=== PATIENT | male | born 1960 | race Asian ===

== ENCOUNTER 2016-12-28 17:36 | Emergency (ER) | payer MEDICAID ==
[~2016-12-28] VITALS: Ht 167.6 cm; Wt 70.8 kg
[~2016-12-28 17:36] MED LIST: ACET650T10 GT; AMIO200T2 GT; CLON0.5T4 GT; DOCU-270 GT; FOLI0.8T23 GT; LEVE1000 GT; MIDO5TAB GT; NEPRO 1.8 GT; OMEP40CA37 PO; SEVE0.8P GT
--- NOTE | 2016-12-28 17:48 | NUR ---
DR JOHN AT BEDSIDE FOR EVAL.
--- NOTE | 2016-12-28 17:50 | NUR ---
PT FOX TO ER BED 10. CAME FROM [facility]. HERE FOR HYPOTENSION POST DIALYSIS. PT GOWNED AND PLACED ON MONITOR. VENT DEPENDENT W/ CURRENT SETTINGS AC 18 TV 500 FIO2 30% PEEP 5. AWAITING MD SWANSON.
--- NOTE | 2016-12-28 18:10 | NUR ---
IV LINE STARTED BLOOD DRAWN AND SENT TO LAB.
[2016-12-28 18:22] VITALS: BP 92/69
[2016-12-28 18:22] LABS: BASOPHILS % (AUTO) 0.7 % (0.0-2.0); EOSINOPHILS # (AUTO) 0.1 /CMM (0.0-0.7); HEMATOCRIT 36 % (39-51); HEMOGLOBIN 11.9 g/dL (13.5-17.5); LYMPHOCYTES # (AUTO) 0.8 /CMM (0.8-4.8); MEAN CORPUSCULAR HEMOGLOBIN 31 PG (26.0-33.0); MEAN CORPUSCULAR HGB CONC 33 g/dl (31.0-36.0); MEAN CORPUSCULAR VOLUME 95 fL (80-96); MONOCYTES # (AUTO) 0.4 /CMM (0.1-1.30); MONOCYTES % (AUTO) 6.4 % (2.0-12.0); NEUTROPHILS # (AUTO) 5.2 /CMM (1.8-8.9); NEUTROPHILS % (AUTO) 77.9 % (43.0-81.0); PLATELET COUNT (AUTO) 189 /CMM (150-450); RDW COEFFICIENT OF VARIATION 16.6 (11.5-15.0); RED BLOOD CELL COUNT(AUTO) 3.84 MIL/uL (4.5-6.0); WHITE BLOOD COUNT (AUTO) 6.5 K/uL (4.3-11.0)
--- NOTE | 2016-12-28 18:25 | NUR ---
RT NOTE PT RECEIVED MECHANICALLY VENTILATED VIA TRACH TUBE. PT PLACED ON VENT ON SETTINGS ENDORSED FROM TRANSPORT RT. ALARMS SET PER PROTOCOL AND AUDIBLE. VENT PLUGGED IN TO RED OUTLET. AMBU BAG AT BED SIDE. NO DISTRESS NOTED. WILL CONTINUE TO MONITOR. Addendum: 12/28/16 at 1827 by KYM RAMOS RT Amended: Links added.
[2016-12-28 18:33] LABS: CALCIUM, SERUM 9.2 mg/dL (8.5-10.1); CREATININE 3.4 mg/dL (0.6-1.3); POTASSIUM 4.3 mmol/L (3.5-5.1)
[2016-12-28] MEDS ORDERED: CALC667T2 GT (18:33)
[2016-12-28] MEDS ORDERED: IPRA3AMP IH ×2 (18:33)
[2016-12-28] MEDS ORDERED: LEVE100S GT (18:33)
[2016-12-28] MEDS ORDERED: MINE3.5O EACHEYE (18:33)
[2016-12-28] MEDS ORDERED: NUT.237L67 GT (18:33)
[2016-12-28] MEDS ORDERED: ACID1TAB12 GT (18:33)
[2016-12-28] MEDS ORDERED: CINA30TA PO (18:33)
[2016-12-28] MEDS ORDERED: SENN8.6T6 GT (18:33)
[2016-12-28] MEDS ORDERED: DOCU50LI GT (18:33)
[2016-12-28 18:39] LABS: BILIRUBIN,DIRECT 0.1 mg/dL (0.0-0.2); BILIRUBIN,TOTAL 0.5 mg/dL (0.2-1.0); TOTAL PROTEIN, SERUM 9.2 g/dL (6.4-8.2)
[2016-12-28 19:08] VITALS: BP 80/56
--- NOTE | 2016-12-28 19:09 | NUR ---
RT PT RECEIVED TRACHD ON [facility] VENT WITH NOTED SETTING. PT AWAKE BUT NOT ALERT. PT TOLERATING SETTING WELL. NO SOB OR DISTRESS NOTED. VENT CONNECTED TO RED OUTLET. AMBU BAG AT [facility]. WILL CONTINUE TO MONITOR. Addendum: 12/28/16 at 1911 by PEDRO NEAL RT Amended: Links added.
[2016-12-28 19:11] LABS: BAND % (MANUAL) 1 % (0.0-5.0); EOSINOPHILS % (MANUAL) 1 % (0-4); LYMPHOCYTES % (MANUAL) 13 % (16-48); MONOCYTES % (MANUAL) 4 % (0-11.0); NEUTROPHILS % (MANUAL) 81 (42-76)
--- NOTE | 2016-12-28 21:14 | NUR ---
CALLED TRANSPORT NEED RT THEY WILL CALL US BACK
--- NOTE | 2016-12-28 22:22 | NUR ---
GOT A CALL BACK FROM [place] [id number]
[2016-12-28 22:25] VITALS: BP 126/76
--- NOTE | 2016-12-28 22:50 | NUR ---
PT TRANSPORTED TO [facility].
[2016-12-28 22:57] VITALS: BP 103/71
== END 2016-12-28 22:58 | disposition home or self-care (01) ==
LOC: ER 17:38
DX: I95.9 Hypotension, unspecified (principal); I13.2 Hypertensive heart and chronic kidney disease with heart failure and with stage 5 chronic kidney disease, or end stage renal disease; I70.0 Atherosclerosis of aorta; E11.22 Type 2 diabetes mellitus with diabetic chronic kidney disease; E87.1 Hypo-osmolality and hyponatremia; I50.9 Heart failure, unspecified; N18.6 End stage renal disease; Z46.59 Encounter for fitting and adjustment of other gastrointestinal appliance and device; Z93.0 Tracheostomy status; Z99.11 Dependence on respirator [ventilator] status; Z99.2 Dependence on renal dialysis
CPT/HCPCS: 36415; 43760; 71010; 74000; 80048; 80076; 83605; 85025; 87040 ×2; 99285; A4606; J7030; J7040; Q9963; Z7610

== ENCOUNTER 2018-05-07 11:44 | Inpatient (IN) | payer MEDICAID ==
[2018-05-07] VITALS (49 sets, daily range): BP systolic 60–108; BP diastolic 34–75
[~2018-05-07] VITALS: Ht 167.6 cm; Wt 82.6 kg
[~2018-05-07 11:44] MED LIST changes: +ACID1TAB12 GT; -AMIO200T2 GT; +AMIO200T4 GT; +CALC667T2 GT; +CINA30TA2 PO; +CLON0.5T12 GT; -CLON0.5T4 GT; -DOCU-270 GT; +DOCU50LI GT; +IPRA3AMP23 IH; -LEVE1000 GT; +LEVE100S GT; +MINE3.5O EACHEYE; -NEPRO 1.8 GT; +NUT.237L67 GT; +SENN-168 GT
[2018-05-07] MEDS ORDERED: ONDANSETRON HCL/PF 4 MG/2 ML VIAL ONE (11:59)
[2018-05-07] MEDS ORDERED: VANCOMYCIN 1 GM in IV D5W 250 ML IV ONE (12:00)
[2018-05-07] MEDS ORDERED: PIPERACILLIN /TAZOBACTAM 3.375 G in IV D5W 50 ML IV ONE (12:00)
[2018-05-07] MEDS ORDERED: ONDANSETRON HCL/PF 4 MG/2 ML VIAL IVP ONE (12:00)
[2018-05-07 12:13] LABS: POTASSIUM 3.6 mmol/L (3.5-5.1)
[2018-05-07 12:14] LABS: CALCIUM, SERUM 9.9 mg/dL (8.5-10.1); CARBON DIOXIDE 21 mmol/L (21-32); CHLORIDE 93 mmol/L (98-107); GLUCOSE 199 mg/dL (74-106); SODIUM SERUM 133 mmol/L (136-145)
[2018-05-07 12:22] LABS: BILIRUBIN,DIRECT 0.2 mg/dL (0.0-0.2); BILIRUBIN,TOTAL 0.7 mg/dL (0.2-1.0)
[2018-05-07 12:23] LABS: ALBUMIN 3.5 g/dL (3.4-5.0); ALKALINE PHOSPHATASE 186 U/L (46-116); TOTAL PROTEIN, SERUM 8.8 g/dL (6.4-8.2)
[2018-05-07 12:24] LABS: CREATININE 9.5 mg/dL (0.6-1.3); UREA NITROGEN, BLOOD 107 mg/dL (7-18)
[2018-05-07] MEDS ORDERED: IV NS 0.9% 1,000 ML IV ONE (12:30)
[2018-05-07 12:38] LABS: BASOPHILS # (AUTO) 0.1 /CMM (0.0-0.2); BASOPHILS % (AUTO) 0.7 % (0.0-2.0); HEMATOCRIT 30 % (39-51); HEMOGLOBIN 10.3 g/dL (13.5-17.5); LYMPHOCYTES # (AUTO) 0.6 /CMM (0.8-4.8); LYMPHOCYTES % (AUTO) 7.3 % (20.0-44.0); MEAN CORPUSCULAR HGB CONC 34 g/dl (31.0-36.0); MEAN CORPUSCULAR VOLUME 100 fL (80-96); MONOCYTES # (AUTO) 0.3 /CMM (0.1-1.30); MONOCYTES % (AUTO) 3.5 % (2.0-12.0); NEUTROPHILS # (AUTO) 7.4 /CMM (1.8-8.9); NEUTROPHILS % (AUTO) 87.5 % (43.0-81.0); PLATELET COUNT (AUTO) 218 /CMM (150-450); RED BLOOD CELL COUNT(AUTO) 3.02 MIL/uL (4.5-6.0); WHITE BLOOD COUNT (AUTO) 8.5 K/uL (4.3-11.0)
[2018-05-07 13:16] LABS: ALANINE AMINOTRANSFERASE 75 U/L (12-78); ASPARTATE AMINOTRANSFERASE 38 U/L (15-37)
[2018-05-07] MEDS ORDERED: FAMO20TA41 GT (13:18)
[2018-05-07] MEDS ORDERED: FOLI1TAB16 GT (13:18)
[2018-05-07] MEDS ORDERED: LACT1TAB9 GT (13:18)
[2018-05-07] MEDS ORDERED: BLOO-668 IN (13:41)
[2018-05-07] MEDS ORDERED: INSU100V27 SQ (13:41)
[2018-05-07] MEDS ORDERED: ONDANSETRON HCL/PF 4 MG/2 ML VIAL IVP PRN (15:00)
[2018-05-07] MEDS ORDERED: MAGNESIUM HYDROXIDE 30 ML UDC PO PRN (15:00)
[2018-05-07] MEDS ORDERED: MAG HYDROX/AL HYDROX/SIMETH 30 ML UDC PO PRN (15:00)
[2018-05-07] MEDS ORDERED: ZOLPIDEM TARTRATE 5 MG TABLET PO PRN (15:00)
[2018-05-07] MEDS ORDERED: HYDROCODONE/APAP 5/325MG 1 EACH TABLET PO PRN (15:00)
[2018-05-07] MEDS ORDERED: FEE PK DOSING 1 MIN EA MC ONE (15:01)
[2018-05-07] MEDS: IV NS 0.9% 1,000 ML IV PRN (16:48)
[2018-05-07] MEDS: LEVOFLOXACIN 500 MG /D5W 100ML 500 MG in PREMIX 1 EA IV SCH (17:33)
[2018-05-07] MEDS: ACETAMINOPHEN 325 MG TABLET PO PRN (18:35)
[2018-05-07] MEDS ORDERED: NOREPINEPHRINE 8 MG in IV D5W 500 ML IV PRN (19:00)
[2018-05-07] MEDS: PIPERACILLIN /TAZOBACTAM 2.25 G in IV D5W 50 ML IV SCH (21:00)
[2018-05-08] VITALS (107 sets, daily range): BP systolic 74–136; BP diastolic 45–94
[2018-05-08] MEDS: ACETAMINOPHEN 325 MG TABLET PO PRN (01:58)
[2018-05-08 04:50] LABS: BASOPHILS % (AUTO) 0.2 % (0.0-2.0); HEMATOCRIT 27 % (39-51); HEMOGLOBIN 8.9 g/dL (13.5-17.5); LYMPHOCYTES # (AUTO) 0.7 /CMM (0.8-4.8); LYMPHOCYTES % (AUTO) 6.2 % (20.0-44.0); MEAN CORPUSCULAR HGB CONC 33 g/dl (31.0-36.0); MEAN CORPUSCULAR VOLUME 100 fL (80-96); MONOCYTES # (AUTO) 0.5 /CMM (0.1-1.30); MONOCYTES % (AUTO) 4.9 % (2.0-12.0); NEUTROPHILS # (AUTO) 9.3 /CMM (1.8-8.9); NEUTROPHILS % (AUTO) 87.7 % (43.0-81.0); PLATELET COUNT (AUTO) 229 /CMM (150-450); RED BLOOD CELL COUNT(AUTO) 2.67 MIL/uL (4.5-6.0); WHITE BLOOD COUNT (AUTO) 10.6 K/uL (4.3-11.0)
[2018-05-08 05:06] LABS: ALBUMIN 3.1 g/dL (3.4-5.0); BILIRUBIN,TOTAL 0.7 mg/dL (0.2-1.0); CALCIUM, SERUM 8.8 mg/dL (8.5-10.1); CREATININE 6.5 mg/dL (0.6-1.3); MAGNESIUM 2.3 mg/dL (1.8-2.4); PHOSPHORUS 2.8 mg/dL (2.5-4.9); POTASSIUM 3.6 mmol/L (3.5-5.1); TOTAL PROTEIN, SERUM 7.7 g/dL (6.4-8.2)
[2018-05-08] MEDS: PIPERACILLIN /TAZOBACTAM 2.25 G in IV D5W 50 ML IV SCH ×3 (05:30→21:00)
[2018-05-08] MEDS: IV NS 0.9% 1,000 ML IV PRN ×2 (05:30→18:07)
[2018-05-08 08:42] LABS: ABG BASE EXCESS -2.8 mmol/L; ABG OXYGEN SATURATION 97.9 % (92.0-98.5); ABG PCO2 35.3 mmHg (35.0-45.0); ABG PH 7.403 (7.350-7.450); ABG PO2 121.1 mmHg (75.0-100.0); AaDO2 123.5 mmHg; COHb 1.3 % (0.5-1.5); MetHb 0.1 % (0.0-1.5); O2Hb 96.5 % (94.0-97.0); SITE, ABG Right Radial
[2018-05-08] MEDS: NOREPINEPHRINE 16 MG in IV D5W 500 ML IV PRN (09:28)
[2018-05-08] MEDS: Z GUARD REMEDY 2 OZ OINT TP PRN (09:28)
[2018-05-08] MEDS ORDERED: DEXTROSE 50%-WATER 50 ML DISP.SYRIN IV PRN (10:00)
[2018-05-08] MEDS: BLOOD SUGAR DIAGNOSTIC 1 EACH STRIP IN SCH ×3 (11:58→23:48)
[2018-05-08] MEDS ORDERED: VANCOMYCIN 1 GM in IV D5W 250 ML IV ONE (13:00)
[2018-05-08] MEDS ORDERED: VANCOMYCIN 500 MG in IV D5W 100 ML IV PRN (16:00)
[2018-05-08] MEDS: NEPRO 1,000 ML BOTTLE GT PRN (19:57)
[2018-05-08 23:06] LABS: OCCULT BLOOD STOOL NEGATIVE (NEGATIVE)
[2018-05-08] MEDS: INSULIN REGULAR, HUMAN 100 UNIT/ML 3 ML VIAL SQ PRN (23:52)
[2018-05-09] VITALS (105 sets, daily range): BP systolic 74–148; BP diastolic 51–84
[2018-05-09 04:34] LABS: BASOPHILS % (AUTO) 0.4 % (0.0-2.0); HEMATOCRIT 24 % (39-51); HEMOGLOBIN 8.1 g/dL (13.5-17.5); LYMPHOCYTES # (AUTO) 0.7 /CMM (0.8-4.8); LYMPHOCYTES % (AUTO) 9.5 % (20.0-44.0); MEAN CORPUSCULAR HGB CONC 33 g/dl (31.0-36.0); MEAN CORPUSCULAR VOLUME 100 fL (80-96); MONOCYTES # (AUTO) 0.5 /CMM (0.1-1.30); MONOCYTES % (AUTO) 6.7 % (2.0-12.0); NEUTROPHILS # (AUTO) 5.9 /CMM (1.8-8.9); NEUTROPHILS % (AUTO) 81.4 % (43.0-81.0); PLATELET COUNT (AUTO) 176 /CMM (150-450); RED BLOOD CELL COUNT(AUTO) 2.43 MIL/uL (4.5-6.0); WHITE BLOOD COUNT (AUTO) 7.2 K/uL (4.3-11.0)
[2018-05-09 04:48] LABS: CALCIUM, SERUM 8.5 mg/dL (8.5-10.1); MAGNESIUM 2.3 mg/dL (1.8-2.4); PHOSPHORUS 3.3 mg/dL (2.5-4.9); POTASSIUM 3.5 mmol/L (3.5-5.1)
[2018-05-09] MEDS: PIPERACILLIN /TAZOBACTAM 2.25 G in IV D5W 50 ML IV SCH ×3 (05:05→20:37)
[2018-05-09] MEDS: BLOOD SUGAR DIAGNOSTIC 1 EACH STRIP IN SCH ×4 (05:05→23:33)
[2018-05-09] MEDS: INSULIN REGULAR, HUMAN 100 UNIT/ML 3 ML VIAL SQ PRN ×3 (06:01→17:16)
[2018-05-09] MEDS: IV NS 0.9% 1,000 ML IV PRN ×2 (07:37→12:33)
[2018-05-09] MEDS: NOREPINEPHRINE 16 MG in IV D5W 500 ML IV PRN ×2 (07:42→18:38)
[2018-05-09] MEDS: LACTOBACILLUS RHAMNOSUS GG 1 EACH CAP.SPRINK GT SCH (17:02)
[2018-05-09] MEDS: LEVOFLOXACIN 500 MG /D5W 100ML 500 MG in PREMIX 1 EA IV SCH (17:03)
[2018-05-09] MEDS: Z GUARD REMEDY 2 OZ OINT TP PRN (17:16)
[2018-05-10] VITALS (91 sets, daily range): BP systolic 88–139; BP diastolic 57–94
[2018-05-10] MEDS: NEPRO 1,000 ML BOTTLE GT PRN (01:23)
[2018-05-10 04:31] LABS: BASOPHILS % (AUTO) 0.3 % (0.0-2.0); EOSINOPHILS % (AUTO) 2.1 % (0.0-6.0); HEMATOCRIT 24 % (39-51); LYMPHOCYTES # (AUTO) 0.6 /CMM (0.8-4.8); LYMPHOCYTES % (AUTO) 8.7 % (20.0-44.0); MEAN CORPUSCULAR HGB CONC 34 g/dl (31.0-36.0); MEAN CORPUSCULAR VOLUME 99 fL (80-96); MONOCYTES # (AUTO) 0.4 /CMM (0.1-1.30); MONOCYTES % (AUTO) 5.9 % (2.0-12.0); NEUTROPHILS # (AUTO) 5.5 /CMM (1.8-8.9); PLATELET COUNT (AUTO) 181 /CMM (150-450); RED BLOOD CELL COUNT(AUTO) 2.42 MIL/uL (4.5-6.0); WHITE BLOOD COUNT (AUTO) 6.7 K/uL (4.3-11.0)
[2018-05-10 04:43] LABS: CALCIUM, SERUM 8.7 mg/dL (8.5-10.1); CREATININE 6.3 mg/dL (0.6-1.3); MAGNESIUM 2.1 mg/dL (1.8-2.4); PHOSPHORUS 3.5 mg/dL (2.5-4.9); POTASSIUM 3.2 mmol/L (3.5-5.1)
[2018-05-10] MEDS: PIPERACILLIN /TAZOBACTAM 2.25 G in IV D5W 50 ML IV SCH ×3 (05:14→21:47)
[2018-05-10] MEDS: BLOOD SUGAR DIAGNOSTIC 1 EACH STRIP IN SCH ×3 (05:14→17:21)
[2018-05-10] MEDS: INSULIN REGULAR, HUMAN 100 UNIT/ML 3 ML VIAL SQ PRN ×2 (05:40→12:15)
[2018-05-10] MEDS: LACTOBACILLUS RHAMNOSUS GG 1 EACH CAP.SPRINK GT SCH ×2 (08:41→17:21)
[2018-05-10] MEDS: IV NS 0.9% 1,000 ML IV PRN (08:41)
[2018-05-10] MEDS ORDERED: POTASSIUM CHLORIDE 20 MEQ POWDER PACKET GT ONE (09:30)
[2018-05-10] MEDS: ACETAMINOPHEN 325 MG TABLET PO PRN (17:21)
[2018-05-11] VITALS (93 sets, daily range): BP systolic 75–140; BP diastolic 28–86
[2018-05-11] MEDS: BLOOD SUGAR DIAGNOSTIC 1 EACH STRIP IN SCH ×5 (00:02→23:45)
[2018-05-11] MEDS: INSULIN REGULAR, HUMAN 100 UNIT/ML 3 ML VIAL SQ PRN ×4 (00:08→23:46)
[2018-05-11] MEDS: NEPRO 1,000 ML BOTTLE GT PRN ×2 (03:00→23:05)
[2018-05-11 05:08] LABS: CALCIUM, SERUM 9.2 mg/dL (8.5-10.1); POTASSIUM 3.6 mmol/L (3.5-5.1)
[2018-05-11] MEDS: PIPERACILLIN /TAZOBACTAM 2.25 G in IV D5W 50 ML IV SCH ×3 (05:33→21:01)
[2018-05-11 05:34] LABS: CREATININE 7.6 mg/dL (0.6-1.3)
[2018-05-11] MEDS: LACTOBACILLUS RHAMNOSUS GG 1 EACH CAP.SPRINK GT SCH ×2 (08:23→17:23)
[2018-05-11] MEDS: NOREPINEPHRINE 16 MG in IV D5W 500 ML IV PRN (09:39)
[2018-05-11] MEDS: IV NS 0.9% 1,000 ML IV PRN (09:48)
[2018-05-11] MEDS: Z GUARD REMEDY 2 OZ OINT TP PRN (11:51)
[2018-05-11] MEDS: LEVOFLOXACIN 500 MG /D5W 100ML 500 MG in PREMIX 1 EA IV SCH (17:23)
[2018-05-11] MEDS ORDERED: NOREPINEPHRINE 16 MG in IV D5W 500 ML IV PRN (18:00)
[2018-05-12] VITALS (87 sets, daily range): BP systolic 36–139; BP diastolic 36–96
[2018-05-12 04:49] LABS: BASOPHILS % (AUTO) 0.5 % (0.0-2.0); EOSINOPHILS % (AUTO) 2.4 % (0.0-6.0); HEMATOCRIT 23 % (39-51); HEMOGLOBIN 7.6 g/dL (13.5-17.5); LYMPHOCYTES % (AUTO) 12.8 % (20.0-44.0); MEAN CORPUSCULAR HGB CONC 34 g/dl (31.0-36.0); MEAN CORPUSCULAR VOLUME 98 fL (80-96); MONOCYTES # (AUTO) 0.4 /CMM (0.1-1.30); MONOCYTES % (AUTO) 5.8 % (2.0-12.0); NEUTROPHILS # (AUTO) 5.9 /CMM (1.8-8.9); NEUTROPHILS % (AUTO) 78.5 % (43.0-81.0); PLATELET COUNT (AUTO) 210 /CMM (150-450); RED BLOOD CELL COUNT(AUTO) 2.31 MIL/uL (4.5-6.0); WHITE BLOOD COUNT (AUTO) 7.4 K/uL (4.3-11.0)
[2018-05-12 05:05] LABS: CALCIUM, SERUM 9.3 mg/dL (8.5-10.1); CREATININE 7.2 mg/dL (0.6-1.3); MAGNESIUM 2.1 mg/dL (1.8-2.4); PHOSPHORUS 5.1 mg/dL (2.5-4.9); POTASSIUM 3.8 mmol/L (3.5-5.1)
[2018-05-12] MEDS: PIPERACILLIN /TAZOBACTAM 2.25 G in IV D5W 50 ML IV SCH ×3 (05:15→21:04)
[2018-05-12] MEDS: BLOOD SUGAR DIAGNOSTIC 1 EACH STRIP IN SCH ×4 (05:32→23:50)
[2018-05-12 08:08] LABS: BAND % (MANUAL) 8 % (0.0-5.0); EOSINOPHILS % (MANUAL) 3 % (0-4); LYMPHOCYTES % (MANUAL) 7 % (16-48); MONOCYTES % (MANUAL) 4 % (0-11.0); MYELOCYTES % 1 % (0-0); NEUTROPHILS % (MANUAL) 77 (42-76)
[2018-05-12] MEDS: LACTOBACILLUS RHAMNOSUS GG 1 EACH CAP.SPRINK GT SCH ×2 (08:21→16:55)
[2018-05-12] MEDS: MIDODRINE HCL (5MG) 5 MG TABLET GT SCH ×3 (11:19→16:55)
[2018-05-12] MEDS: SEVELAMER CARBONATE 0.8 GM POWD.PACK GT SCH ×3 (11:19→16:55)
[2018-05-12] MEDS: LEVETIRACETAM SOL (5 ML) 100 MG/ML UDC GT SCH ×2 (11:19→21:04)
[2018-05-12] MEDS: IV NS 0.9% 1,000 ML IV PRN (12:28)
[2018-05-12] MEDS: clonazePAM 0.5 MG TABLET GT SCH (21:04)
[2018-05-13] VITALS (41 sets, daily range): BP systolic 90–123; BP diastolic 63–82
[2018-05-13 05:09] LABS: CALCIUM, SERUM 9.3 mg/dL (8.5-10.1); POTASSIUM 4.1 mmol/L (3.5-5.1)
[2018-05-13] MEDS: PIPERACILLIN /TAZOBACTAM 2.25 G in IV D5W 50 ML IV SCH ×2 (05:10→12:01)
[2018-05-13] MEDS: NEPRO 1,000 ML BOTTLE GT PRN (05:10)
[2018-05-13 05:11] LABS: CREATININE 8.8 mg/dL (0.6-1.3)
[2018-05-13] MEDS: BLOOD SUGAR DIAGNOSTIC 1 EACH STRIP IN SCH ×4 (06:15→23:04)
[2018-05-13] MEDS: INSULIN REGULAR, HUMAN 100 UNIT/ML 3 ML VIAL SQ PRN (06:18)
[2018-05-13] MEDS: LEVETIRACETAM SOL (5 ML) 100 MG/ML UDC GT SCH ×2 (08:19→20:02)
[2018-05-13] MEDS: clonazePAM 0.5 MG TABLET GT SCH ×2 (08:20→20:02)
[2018-05-13] MEDS: FOLIC ACID 1 MG TABLET GT SCH (08:20)
[2018-05-13] MEDS: MIDODRINE HCL (5MG) 5 MG TABLET GT SCH ×3 (08:20→16:32)
[2018-05-13] MEDS: SEVELAMER CARBONATE 0.8 GM POWD.PACK GT SCH ×3 (08:20→16:32)
[2018-05-13] MEDS: LACTOBACILLUS RHAMNOSUS GG 1 EACH CAP.SPRINK GT SCH ×2 (08:20→16:32)
[2018-05-13] MEDS: IV NS 0.9% 1,000 ML IV PRN (13:35)
[2018-05-13] MEDS ORDERED: CEFEPIME 1 GM in IV D5W 50 ML IV SCH (16:00)
[2018-05-13] MEDS: LEVOFLOXACIN 500 MG /D5W 100ML 500 MG in PREMIX 1 EA IV SCH (16:32)
[2018-05-13] MEDS: CEFEPIME 1 GM in IV D5W 50 ML IV SCH (18:08)
[2018-05-13] MEDS ORDERED: IV D5/ 0.9% NACL 1,000 ML IV PRN (18:30)
[2018-05-14] VITALS (17 sets, daily range): BP systolic 97–118; BP diastolic 66–89
[2018-05-14 04:54] LABS: BASOPHILS % (AUTO) 0.6 % (0.0-2.0); EOSINOPHILS % (AUTO) 2.6 % (0.0-6.0); LYMPHOCYTES # (AUTO) 0.9 /CMM (0.8-4.8); MEAN CORPUSCULAR HGB CONC 34 g/dl (31.0-36.0); MEAN CORPUSCULAR VOLUME 97 fL (80-96); MONOCYTES # (AUTO) 0.4 /CMM (0.1-1.30); MONOCYTES % (AUTO) 6.2 % (2.0-12.0); NEUTROPHILS # (AUTO) 4.6 /CMM (1.8-8.9); NEUTROPHILS % (AUTO) 75.6 % (43.0-81.0); PLATELET COUNT (AUTO) 181 /CMM (150-450); RED BLOOD CELL COUNT(AUTO) 2.03 MIL/uL (4.5-6.0); WHITE BLOOD COUNT (AUTO) 6.1 K/uL (4.3-11.0)
[2018-05-14 05:01] LABS: CALCIUM, SERUM 8.8 mg/dL (8.5-10.1); PHOSPHORUS 6.7 mg/dL (2.5-4.9)
[2018-05-14 05:04] LABS: CREATININE 10.1 mg/dL (0.6-1.3)
[2018-05-14] MEDS: BLOOD SUGAR DIAGNOSTIC 1 EACH STRIP IN SCH ×4 (05:09→23:30)
[2018-05-14 05:13] LABS: HEMATOCRIT 20 % (39-51); HEMOGLOBIN 6.7 g/dL (13.5-17.5)
[2018-05-14 05:20] LABS: LYMPHOCYTES % (MANUAL) 20 % (16-48)
[2018-05-14 05:22] LABS: EOSINOPHILS % (MANUAL) 2 % (0-4); MONOCYTES % (MANUAL) 4 % (0-11.0); NEUTROPHILS % (MANUAL) 72 (42-76)
[2018-05-14] MEDS: SEVELAMER CARBONATE 0.8 GM POWD.PACK GT SCH ×3 (08:49→17:22)
[2018-05-14] MEDS: LACTOBACILLUS RHAMNOSUS GG 1 EACH CAP.SPRINK GT SCH ×2 (08:50→17:22)
[2018-05-14] MEDS: clonazePAM 0.5 MG TABLET GT SCH ×2 (08:50→21:12)
[2018-05-14] MEDS: LEVETIRACETAM SOL (5 ML) 100 MG/ML UDC GT SCH ×2 (08:50→21:01)
[2018-05-14] MEDS: MIDODRINE HCL (5MG) 5 MG TABLET GT SCH ×3 (08:50→17:22)
[2018-05-14] MEDS: FOLIC ACID 1 MG TABLET GT SCH (08:50)
[2018-05-14 18:28] LABS: OCCULT BLOOD STOOL POSITIVE (NEGATIVE)
[2018-05-14] MEDS: CEFEPIME 1 GM in IV D5W 50 ML IV SCH (19:12)
[2018-05-14] MEDS: IV D5/ 0.9% NACL 1,000 ML IV PRN (20:57)
[2018-05-14] MEDS: PANTOPRAZOLE 40 MG VIAL IV SCH (21:01)
[2018-05-15] VITALS: BP 107/81
[2018-05-15 04:00] VITALS: BP 104/77
[2018-05-15 06:31] LABS: BASOPHILS % (AUTO) 0.5 % (0.0-2.0); EOSINOPHILS % (AUTO) 2.3 % (0.0-6.0); HEMATOCRIT 24 % (39-51); HEMOGLOBIN 8.1 g/dL (13.5-17.5); LYMPHOCYTES # (AUTO) 0.8 /CMM (0.8-4.8); LYMPHOCYTES % (AUTO) 12.5 % (20.0-44.0); MEAN CORPUSCULAR HGB CONC 34 g/dl (31.0-36.0); MEAN CORPUSCULAR VOLUME 95 fL (80-96); MONOCYTES # (AUTO) 0.3 /CMM (0.1-1.30); MONOCYTES % (AUTO) 5.5 % (2.0-12.0); NEUTROPHILS # (AUTO) 4.8 /CMM (1.8-8.9); NEUTROPHILS % (AUTO) 79.2 % (43.0-81.0); PLATELET COUNT (AUTO) 194 /CMM (150-450); RED BLOOD CELL COUNT(AUTO) 2.46 MIL/uL (4.5-6.0); WHITE BLOOD COUNT (AUTO) 6.1 K/uL (4.3-11.0)
[2018-05-15] MEDS: BLOOD SUGAR DIAGNOSTIC 1 EACH STRIP IN SCH ×3 (06:46→18:09)
[2018-05-15 06:48] LABS: ALBUMIN 2.6 g/dL (3.4-5.0); BILIRUBIN,TOTAL 0.6 mg/dL (0.2-1.0); CALCIUM, SERUM 8.6 mg/dL (8.5-10.1); MAGNESIUM 1.9 mg/dL (1.8-2.4); PHOSPHORUS 5.1 mg/dL (2.5-4.9); POTASSIUM 3.8 mmol/L (3.5-5.1)
[2018-05-15 06:54] LABS: CREATININE 7.7 mg/dL (0.6-1.3)
[2018-05-15 08:00] VITALS: BP 103/74
[2018-05-15] MEDS: FOLIC ACID 1 MG TABLET GT SCH (08:50)
[2018-05-15] MEDS: PANTOPRAZOLE 40 MG VIAL IV SCH ×2 (08:50→20:45)
[2018-05-15] MEDS: clonazePAM 0.5 MG TABLET GT SCH ×2 (08:50→20:45)
[2018-05-15] MEDS: MIDODRINE HCL (5MG) 5 MG TABLET GT SCH ×3 (08:50→18:08)
[2018-05-15] MEDS: LEVETIRACETAM SOL (5 ML) 100 MG/ML UDC GT SCH ×2 (08:50→20:45)
[2018-05-15] MEDS: LACTOBACILLUS RHAMNOSUS GG 1 EACH CAP.SPRINK GT SCH ×2 (08:51→18:09)
[2018-05-15] MEDS: SEVELAMER CARBONATE 0.8 GM POWD.PACK GT SCH ×3 (08:51→18:07)
[2018-05-15 12:00] VITALS: BP 113/78
[2018-05-15 16:00] VITALS: BP 119/80
[2018-05-15] MEDS: CEFEPIME 1 GM in IV D5W 50 ML IV SCH (18:10)
[2018-05-15 20:00] VITALS: BP 125/80
[2018-05-16] VITALS (7 sets, daily range): BP systolic 94–117; BP diastolic 52–90
[2018-05-16] MEDS: BLOOD SUGAR DIAGNOSTIC 1 EACH STRIP IN SCH ×4 (00:32→17:00)
[2018-05-16] MEDS: IV D5/ 0.9% NACL 1,000 ML IV PRN (00:58)
[2018-05-16 05:46] LABS: BASOPHILS % (AUTO) 0.3 % (0.0-2.0); EOSINOPHILS % (AUTO) 2.4 % (0.0-6.0); HEMATOCRIT 24 % (39-51); LYMPHOCYTES # (AUTO) 0.8 /CMM (0.8-4.8); LYMPHOCYTES % (AUTO) 13.8 % (20.0-44.0); MEAN CORPUSCULAR HGB CONC 34 g/dl (31.0-36.0); MEAN CORPUSCULAR VOLUME 96 fL (80-96); MONOCYTES # (AUTO) 0.4 /CMM (0.1-1.30); MONOCYTES % (AUTO) 6.2 % (2.0-12.0); NEUTROPHILS # (AUTO) 4.6 /CMM (1.8-8.9); NEUTROPHILS % (AUTO) 77.3 % (43.0-81.0); PLATELET COUNT (AUTO) 179 /CMM (150-450); RED BLOOD CELL COUNT(AUTO) 2.45 MIL/uL (4.5-6.0); WHITE BLOOD COUNT (AUTO) 5.9 K/uL (4.3-11.0)
[2018-05-16 06:05] LABS: CALCIUM, SERUM 8.8 mg/dL (8.5-10.1); MAGNESIUM 1.9 mg/dL (1.8-2.4); PHOSPHORUS 6.8 mg/dL (2.5-4.9); POTASSIUM 3.9 mmol/L (3.5-5.1)
[2018-05-16 06:08] LABS: CREATININE 9.2 mg/dL (0.6-1.3)
[2018-05-16] MEDS: SEVELAMER CARBONATE 0.8 GM POWD.PACK GT SCH ×3 (08:42→16:55)
[2018-05-16] MEDS: LACTOBACILLUS RHAMNOSUS GG 1 EACH CAP.SPRINK GT SCH ×2 (08:43→16:54)
[2018-05-16] MEDS: FOLIC ACID 1 MG TABLET GT SCH (08:43)
[2018-05-16] MEDS: MIDODRINE HCL (5MG) 5 MG TABLET GT SCH ×3 (08:43→16:54)
[2018-05-16] MEDS: LEVETIRACETAM SOL (5 ML) 100 MG/ML UDC GT SCH ×2 (08:43→21:32)
[2018-05-16] MEDS: PANTOPRAZOLE 40 MG VIAL IV SCH ×2 (08:43→21:32)
[2018-05-16] MEDS: clonazePAM 0.5 MG TABLET GT SCH ×2 (08:43→21:32)
[2018-05-16] MEDS: CEFEPIME 1 GM in IV D5W 50 ML IV SCH (17:00)
[2018-05-17] VITALS: BP 121/77
[2018-05-17] MEDS: INSULIN REGULAR, HUMAN 100 UNIT/ML 3 ML VIAL SQ PRN ×2 (01:11→06:02)
[2018-05-17 04:00] VITALS: BP 113/72
[2018-05-17] MEDS: BLOOD SUGAR DIAGNOSTIC 1 EACH STRIP IN SCH ×5 (06:01→23:52)
[2018-05-17] MEDS: IV D5/ 0.9% NACL 1,000 ML IV PRN (06:03)
[2018-05-17 08:00] VITALS: BP 119/80
[2018-05-17 08:04] LABS: BASOPHILS % (AUTO) 0.6 % (0.0-2.0); EOSINOPHILS % (AUTO) 2.2 % (0.0-6.0); HEMATOCRIT 24 % (39-51); LYMPHOCYTES # (AUTO) 0.7 /CMM (0.8-4.8); LYMPHOCYTES % (AUTO) 13.6 % (20.0-44.0); MEAN CORPUSCULAR HGB CONC 34 g/dl (31.0-36.0); MEAN CORPUSCULAR VOLUME 96 fL (80-96); MONOCYTES # (AUTO) 0.3 /CMM (0.1-1.30); MONOCYTES % (AUTO) 5.4 % (2.0-12.0); NEUTROPHILS # (AUTO) 3.9 /CMM (1.8-8.9); NEUTROPHILS % (AUTO) 78.2 % (43.0-81.0); PLATELET COUNT (AUTO) 173 /CMM (150-450); RED BLOOD CELL COUNT(AUTO) 2.46 MIL/uL (4.5-6.0)
[2018-05-17 08:09] LABS: CALCIUM, SERUM 8.8 mg/dL (8.5-10.1); CREATININE 6.6 mg/dL (0.6-1.3); MAGNESIUM 1.9 mg/dL (1.8-2.4); PHOSPHORUS 5.5 mg/dL (2.5-4.9); POTASSIUM 3.7 mmol/L (3.5-5.1)
[2018-05-17] MEDS: LACTOBACILLUS RHAMNOSUS GG 1 EACH CAP.SPRINK GT SCH ×2 (09:13→17:18)
[2018-05-17] MEDS: LEVETIRACETAM SOL (5 ML) 100 MG/ML UDC GT SCH ×2 (09:13→20:03)
[2018-05-17] MEDS: clonazePAM 0.5 MG TABLET GT SCH ×2 (09:13→20:03)
[2018-05-17] MEDS: FOLIC ACID 1 MG TABLET GT SCH (09:14)
[2018-05-17] MEDS: SEVELAMER CARBONATE 0.8 GM POWD.PACK GT SCH ×3 (09:14→17:18)
[2018-05-17] MEDS: MIDODRINE HCL (5MG) 5 MG TABLET GT SCH ×3 (09:14→17:17)
[2018-05-17] MEDS: PANTOPRAZOLE 40 MG VIAL IV SCH ×2 (09:15→20:03)
[2018-05-17 12:00] VITALS: BP 123/82
[2018-05-17 16:19] VITALS: BP 98/68
[2018-05-17] MEDS: CEFEPIME 1 GM in IV D5W 50 ML IV SCH (17:53)
[2018-05-17 20:00] VITALS: BP 96/63
[2018-05-18] VITALS: BP 112/73
[2018-05-18 04:00] VITALS: BP 117/81
[2018-05-18] MEDS: BLOOD SUGAR DIAGNOSTIC 1 EACH STRIP IN SCH ×3 (06:01→18:06)
[2018-05-18] MEDS: IV D5/ 0.9% NACL 1,000 ML IV PRN (06:22)
[2018-05-18 07:24] LABS: BASOPHILS % (AUTO) 0.6 % (0.0-2.0); EOSINOPHILS % (AUTO) 2.6 % (0.0-6.0); HEMATOCRIT 25 % (39-51); HEMOGLOBIN 8.4 g/dL (13.5-17.5); LYMPHOCYTES # (AUTO) 0.9 /CMM (0.8-4.8); LYMPHOCYTES % (AUTO) 16.2 % (20.0-44.0); MEAN CORPUSCULAR HGB CONC 34 g/dl (31.0-36.0); MEAN CORPUSCULAR VOLUME 96 fL (80-96); MONOCYTES # (AUTO) 0.4 /CMM (0.1-1.30); NEUTROPHILS % (AUTO) 73.6 % (43.0-81.0); PLATELET COUNT (AUTO) 170 /CMM (150-450); RED BLOOD CELL COUNT(AUTO) 2.58 MIL/uL (4.5-6.0); WHITE BLOOD COUNT (AUTO) 5.4 K/uL (4.3-11.0)
[2018-05-18 07:41] LABS: CALCIUM, SERUM 9.3 mg/dL (8.5-10.1); MAGNESIUM 1.9 mg/dL (1.8-2.4); PHOSPHORUS 6.6 mg/dL (2.5-4.9); POTASSIUM 3.9 mmol/L (3.5-5.1)
[2018-05-18 07:46] LABS: CREATININE 8.2 mg/dL (0.6-1.3)
[2018-05-18 08:00] VITALS: BP 107/71
[2018-05-18] MEDS: LEVETIRACETAM SOL (5 ML) 100 MG/ML UDC GT SCH ×2 (08:54→20:38)
[2018-05-18] MEDS: clonazePAM 0.5 MG TABLET GT SCH ×2 (08:54→20:38)
[2018-05-18] MEDS: LACTOBACILLUS RHAMNOSUS GG 1 EACH CAP.SPRINK GT SCH ×2 (08:54→16:42)
[2018-05-18] MEDS: SEVELAMER CARBONATE 0.8 GM POWD.PACK GT SCH ×3 (08:54→16:42)
[2018-05-18] MEDS: PANTOPRAZOLE 40 MG VIAL IV SCH ×2 (08:54→20:38)
[2018-05-18] MEDS: FOLIC ACID 1 MG TABLET GT SCH (08:54)
[2018-05-18] MEDS: MIDODRINE HCL (5MG) 5 MG TABLET GT SCH ×3 (10:00→16:57)
[2018-05-18 12:00] VITALS: BP 112/76
[2018-05-18] MEDS: NEPRO 1,000 ML BOTTLE GT PRN (12:27)
[2018-05-18] MEDS ORDERED: NEPRO 1,000 ML BOTTLE GT PRN (12:30)
[2018-05-18 16:00] VITALS: BP 113/74
[2018-05-18] MEDS: CEFEPIME 1 GM in IV D5W 50 ML IV SCH (18:22)
[2018-05-18 20:00] VITALS: BP 113/83
[2018-05-19] VITALS: BP 113/86
[2018-05-19] MEDS: BLOOD SUGAR DIAGNOSTIC 1 EACH STRIP IN SCH ×3 (00:43→12:31)
[2018-05-19] MEDS: INSULIN REGULAR, HUMAN 100 UNIT/ML 3 ML VIAL SQ PRN ×2 (00:43→05:57)
[2018-05-19 04:00] VITALS: BP 132/80
[2018-05-19 07:39] LABS: BASOPHILS % (AUTO) 0.7 % (0.0-2.0); EOSINOPHILS % (AUTO) 2.5 % (0.0-6.0); HEMATOCRIT 24 % (39-51); LYMPHOCYTES # (AUTO) 0.8 /CMM (0.8-4.8); LYMPHOCYTES % (AUTO) 16.2 % (20.0-44.0); MEAN CORPUSCULAR HGB CONC 34 g/dl (31.0-36.0); MEAN CORPUSCULAR VOLUME 96 fL (80-96); MONOCYTES # (AUTO) 0.3 /CMM (0.1-1.30); MONOCYTES % (AUTO) 6.1 % (2.0-12.0); NEUTROPHILS # (AUTO) 3.8 /CMM (1.8-8.9); NEUTROPHILS % (AUTO) 74.5 % (43.0-81.0); PLATELET COUNT (AUTO) 169 /CMM (150-450); RED BLOOD CELL COUNT(AUTO) 2.45 MIL/uL (4.5-6.0); WHITE BLOOD COUNT (AUTO) 5.1 K/uL (4.3-11.0)
[2018-05-19 08:00] VITALS: BP_SYST 112; BP_SYST 122; BP_DIAS 77
[2018-05-19 08:11] LABS: CALCIUM, SERUM 8.9 mg/dL (8.5-10.1)
[2018-05-19 08:12] LABS: CREATININE 7.9 mg/dL (0.6-1.3)
[2018-05-19] MEDS: clonazePAM 0.5 MG TABLET GT SCH (09:50)
[2018-05-19] MEDS: SEVELAMER CARBONATE 0.8 GM POWD.PACK GT SCH ×2 (09:50→12:19)
[2018-05-19] MEDS: MIDODRINE HCL (5MG) 5 MG TABLET GT SCH ×2 (09:50→12:18)
[2018-05-19] MEDS: LEVETIRACETAM SOL (5 ML) 100 MG/ML UDC GT SCH (09:51)
[2018-05-19] MEDS: LACTOBACILLUS RHAMNOSUS GG 1 EACH CAP.SPRINK GT SCH (09:51)
[2018-05-19] MEDS: FOLIC ACID 1 MG TABLET GT SCH (09:51)
[2018-05-19] MEDS: PANTOPRAZOLE 40 MG VIAL IV SCH (09:54)
[2018-05-19] MEDS: IV D5/ 0.9% NACL 1,000 ML IV PRN (10:20)
[2018-05-19] MEDS ORDERED: LACT1CAP72 GT (11:56)
[2018-05-19] MEDS ORDERED: Nepro GT (11:56)
[2018-05-19] MEDS ORDERED: CEFE1FRO IV (11:56)
[2018-05-19 12:00] VITALS: BP 115/73
[2018-05-19 16:00] VITALS: BP 156/91
== END 2018-05-19 17:30 | DRG 720 ==
LOC: ER 11:48 → ICU 13:29 → TELE-TD 05-14 06:02 → TELE1 05-17 16:34
PROVIDERS: ADMIT Internal Medicine; ATTEND Student in an Organized Health Care Education/Training Program
PROC: 02HV33Z Insertion of Infusion Device into Superior Vena Cava, Percutaneous Approach (ICD-10-PCS; principal; 2018-05-07)
PROC: B548ZZA Ultrasonography of Superior Vena Cava, Guidance (ICD-10-PCS; principal; 2018-05-07)
PROC: 5A1955Z Respiratory Ventilation, Greater than 96 Consecutive Hours (ICD-10-PCS; principal; 2018-05-07)
PROC: 30233N1 Transfusion of Nonautologous Red Blood Cells into Peripheral Vein, Percutaneous Approach (ICD-10-PCS; 2018-05-14)
PROC: 0D20XUZ Change Feeding Device in Upper Intestinal Tract, External Approach (ICD-10-PCS; 2018-05-15)
DX: A41.9 Sepsis, unspecified organism (principal); R65.21 Severe sepsis with septic shock; G93.1 Anoxic brain damage, not elsewhere classified; Z99.11 Dependence on respirator [ventilator] status; I13.2 Hypertensive heart and chronic kidney disease with heart failure and with stage 5 chronic kidney disease, or end stage renal disease; J18.9 Pneumonia, unspecified organism; J96.11 Chronic respiratory failure with hypoxia; R40.3 Persistent vegetative state; G40.909 Epilepsy, unspecified, not intractable, without status epilepticus; I48.0 Paroxysmal atrial fibrillation; N18.6 End stage renal disease; Z99.2 Dependence on renal dialysis; Z93.0 Tracheostomy status; E87.1 Hypo-osmolality and hyponatremia; Z87.820 Personal history of traumatic brain injury; E87.6 Hypokalemia; D63.8 Anemia in other chronic diseases classified elsewhere; Z93.1 Gastrostomy status; L30.4 Erythema intertrigo; L98.9 Disorder of the skin and subcutaneous tissue, unspecified; B96.89 Other specified bacterial agents as the cause of diseases classified elsewhere; L03.311 Cellulitis of abdominal wall; B96.5 Pseudomonas (aeruginosa) (mallei) (pseudomallei) as the cause of diseases classified elsewhere; I50.9 Heart failure, unspecified; I25.10 Atherosclerotic heart disease of native coronary artery without angina pectoris; I25.2 Old myocardial infarction; K21.9 Gastro-esophageal reflux disease without esophagitis; R13.10 Dysphagia, unspecified; Y95 Nosocomial condition; Z16.23 Resistance to quinolones and fluoroquinolones; Z86.14 Personal history of Methicillin resistant Staphylococcus aureus infection; Z86.718 Personal history of other venous thrombosis and embolism; Z86.74 Personal history of sudden cardiac arrest; K94.22 Gastrostomy infection; Y83.9 Surgical procedure, unspecified as the cause of abnormal reaction of the patient, or of later complication, without mention of misadventure at the time of the procedure
CPT/HCPCS: 31720; 36415; 36569; 36600; 71045-TC; 80048-TC; 80053-TC; 80061-TC; 80076-TC; 80202-TC; 82272-TC; 82728-TC; 82803-TC; 82962-TC; 83540-TC; 83605-TC; 83735-TC; 84100-TC; 84484-TC; 85025-TC; 85730-TC; 86850-TC; 86921-TC; 87040-TC; 87070-TC; 87081-TC; 87186-TC; 90935-TC; 94002-TC; 94003-TC; 94760-TC; 94762-TC; 99082-TC; A4216; A4623; A6402; C1751; C9113; G0378; J0692; J1815; J1953; J1956; J2405; J2543; J3370; J7030; J7042; J7050; J7060; J7070; P9016-BL

== ENCOUNTER 2019-01-08 09:50 | Inpatient (IN) | payer MEDICAID ==
[~2019-01-08] VITALS: Ht 177.8 cm; Wt 74.4 kg
[~2019-01-08 09:50] MED LIST changes: +BLOO-668 IN; -CALC667T2 GT; +CEFE1FRO IV; -CINA30TA2 PO; -CLON0.5T12 GT; +CLON0.5T4 GT; +FOLI1TAB16 GT; +INSU100V27 SQ; +LACT1CAP72 GT; -MIDO5TAB GT; +MIDO5TAB4 GT; +Nepro GT; -OMEP40CA37 PO
--- NOTE | 2019-01-08 10:00 | NUR ---
PT PLACED INTO [facility] VENT VIA TRACH WITH PARAMETERS BELOW ORDER: AC 12 VT 500 FIO2 40% NO PEEP BREATH SOUNDS COARSE RHONCHI BILATERAL. VENT IS PLUGGED INTO RED OUTLET WITH ALARMS ON AND FUNCTIONING. JUAN @ BEDSIDE. Addendum: 01/08/19 at 1018 by MEMO MERINO RT Amended: Links added.
--- NOTE | 2019-01-08 10:00 | NUR ---
VENITA FROM US RENAL 58 YEAR OLD MALE C/O LOW BP AND HIGH HR. ALERT TO TACTILE STIMULI AND OPEN EYES, NON VERBAL, VENT/TRACH WITH APPROPRIATE SETTINGS. GT TUBE NOTED, LEFT FEMORAL ACCESS SITE FOR DIALYSIS. SKIN WARM AND INTACT. WAITING TO BE SEEN BY
[2019-01-08 10:23] LABS: BASOPHILS # (AUTO) 0.1 /CMM (0.0-0.2); BASOPHILS % (AUTO) 0.6 % (0.0-2.0); HEMATOCRIT 36 % (39-51); LYMPHOCYTES % (AUTO) 10.3 % (20.0-44.0); MEAN CORPUSCULAR HGB CONC 33 g/dl (31.0-36.0); MEAN CORPUSCULAR VOLUME 98 fL (80-96); MONOCYTES # (AUTO) 0.7 /CMM (0.1-1.30); NEUTROPHILS # (AUTO) 8.1 /CMM (1.8-8.9); NEUTROPHILS % (AUTO) 81.1 % (43.0-81.0); PLATELET COUNT (AUTO) 260 /CMM (150-450); RED BLOOD CELL COUNT(AUTO) 3.66 MIL/uL (4.5-6.0); WHITE BLOOD COUNT (AUTO) 9.9 K/uL (4.3-11.0)
[2019-01-08] MEDS ORDERED: AMIN30LI2 GT (10:23)
[2019-01-08] MEDS ORDERED: FERR300L GT (10:23)
[2019-01-08] MEDS ORDERED: LACT1CAP72 GT (10:23)
[2019-01-08] MEDS ORDERED: IV NS 0.9% 250 ML BAG IV ONE ×2 (10:30→12:00)
[2019-01-08 10:44] LABS: CALCIUM, SERUM 10.2 mg/dL (8.5-10.1); CARBON DIOXIDE 24 mmol/L (21-32); CHLORIDE 96 mmol/L (98-107); CREATININE 4.7 mg/dL (0.6-1.3); GLUCOSE 145 mg/dL (74-106); POTASSIUM 3.2 mmol/L (3.5-5.1); SODIUM SERUM 135 mmol/L (136-145); UREA NITROGEN, BLOOD 38 mg/dL (7-18)
[2019-01-08 10:49] LABS: ALANINE AMINOTRANSFERASE 77 U/L (12-78); ALBUMIN 3.8 g/dL (3.4-5.0); ALKALINE PHOSPHATASE 195 U/L (46-116); ASPARTATE AMINOTRANSFERASE 36 U/L (15-37); BILIRUBIN,DIRECT 0.2 mg/dL (0.0-0.2); BILIRUBIN,TOTAL 0.7 mg/dL (0.2-1.0); MAGNESIUM 2.5 mg/dL (1.8-2.4); PHOSPHORUS 2.6 mg/dL (2.5-4.9); TOTAL PROTEIN, SERUM 9.1 g/dL (6.4-8.2)
--- NOTE | 2019-01-08 11:22 | NUR ---
CHEST XRAY DONE AT BEDSIDE
[2019-01-08] MEDS ORDERED: ACETAMINOPHEN 650 MG/SUPP.RECT RC ONE ×2 (11:34→12:00)
[2019-01-08] MEDS ORDERED: POTASSIUM CL. PREMIX PERIPHER. 50 ML ONE (11:46)
--- NOTE | 2019-01-08 11:47 | NUR ---
CALLED NURSING SUP FOR TELE BED
[2019-01-08] MEDS: POTASSIUM CL. PREMIX PERIPHER. 50 ML IV SCH ×3 (11:48→14:27)
[2019-01-08] MEDS ORDERED: VANCOMYCIN HCL 1.25 GM in IV D5W 250 ML IV ONE (12:00)
[2019-01-08] MEDS ORDERED: VANCOMYCIN 1.25 GM in IV D5W 500 ML IV ONE (12:00)
[2019-01-08] MEDS ORDERED: PIPERACILLIN /TAZOBACTAM 3.375 G in IV D5W 50 ML IV ONE (12:00)
--- NOTE | 2019-01-08 12:07 | NUR ---
ASKED FOR [facility] BED FROM NURSING SUP
--- NOTE | 2019-01-08 12:08 | NUR ---
102 [facility], OSMAN DNP, DX PNA, HYPOTENSION, HYPOKALEMIA
[2019-01-08] MEDS ORDERED: ALBUTEROL FS 2.5 MG/0.5 ML VIAL.NEB NEB PRN (12:30)
[2019-01-08] MEDS ORDERED: IPRATROPIUM NEB FS 0.5 MG/2.5 ML AMPUL.NEB NEB PRN (12:30)
[2019-01-08] MEDS ORDERED: HYDROCODONE/APAP 5/325MG 1 EACH TABLET GT PRN (12:30)
[2019-01-08] MEDS ORDERED: ONDANSETRON HCL/PF 4 MG/2 ML VIAL IVP PRN (12:30)
[2019-01-08] MEDS ORDERED: TEMAZEPAM 15 MG CAPSULE GT PRN (12:30)
[2019-01-08] MEDS ORDERED: ACETAMINOPHEN 325 MG TABLET MC PRN (12:30)
--- NOTE | 2019-01-08 12:33 | NUR ---
REPORT GIVEN TO SHARON IN [facility] TO KENDY ARIZMENDI OF CARE
[2019-01-08] MEDS ORDERED: FEE PK DOSING 1 MIN EA MC ONE (12:53)
--- NOTE | 2019-01-08 12:59 | NUR ---
pt. transferred from er 8 to 102. pt. use same [facility] vent with same settings. vent plugged into red outlet with alarms on and functioning. stanley @ bedside. Addendum: 01/08/19 at 1305 by MEMO MERINO RT Amended: Links added.
[2019-01-08 13:00] VITALS: BP 102/66
--- NOTE | 2019-01-08 13:10 | NUR ---
TELE/RN NOTES RECEIVED PATIENT IN A [facility] ER, ACCOMPANIED BY ER NURSES. PATIENT WAS TRANSFERRED IN BED. INITIAL SKIN ASSESSMENT WAS DONE. NOTED WITH SCARRING ON SACRAL AREA. PHOTOS WAS TAKEN AND WAS PLACED IN THE CHART. PATIENT IS OBTUNDED. NO PAIN OR ACUTE DISTRESS AT THIS TIME. RESPIRATION EVEN AND UNLABORED. SKIN IS DRY WARM TO TOUCH. PATIENT NOTED WITH GT AND IV ACCESS ON LEFT AC #18G. INTACT AND PATENT. FLUSHING WELL. HOB ELEVATED AT ALL TIME. ALL NEEDS ANTICIPATED. CALL LIGHT WITHIN REACHED. SAFETY MAINTAINED. BED LOCKED AND IN LOWEST POSITION. REPOSITIONED Q2HRS. WILL CONTINUE TO MONITOR CLOSELY.
[2019-01-08] MEDS ORDERED: NEPRO 1,000 ML BOTTLE GT SCH (13:30)
[2019-01-08 16:00] VITALS: BP 83/46
[2019-01-08] MEDS: MIDODRINE HCL (5MG) 5 MG TABLET GT SCH (16:16)
[2019-01-08] MEDS: SEVELAMER CARBONATE 0.8 GM POWD.PACK GT SCH (16:16)
--- NOTE | 2019-01-08 17:20 | NUR ---
TELE/RN NOTES INFORMED DR. BREWER THAT THE CORTISOL LEVEL WAS HIGH AT 26.2 ACCORDING TO THE LAB. NO NEW ORDERS AT THIS TIME. PATIENT REMAINS IN STABLE CONDITION. WILL CONTINUE TO MONITOR CLOSELY.
[2019-01-08] MEDS: Z GUARD REMEDY 2 OZ OINT TP SCH ×2 (17:44→20:09)
[2019-01-08] MEDS: NEPRO 1,000 ML BOTTLE GT SCH (17:53)
--- NOTE | 2019-01-08 19:16 | NUR ---
TELE/RN CLOSING NOTES PATIENT CONTINUES TO REMAIN IN STABLE CONDITION THROUGHOUT THE SHIFT. PROVIDED COMFORT AND SAFETY. PATIENT NOTED WITH GT AND IV ACCESS ON LEFT AC #18G. INTACT AND PATENT. FLUSHING WELL. HOB ELEVATED AT ALL TIME. ALL NEEDS ANTICIPATED. CALL LIGHT WITHIN REACHED. SAFETY MAINTAINED. BED LOCKED AND IN LOWEST POSITION. REPOSITIONED Q2HRS. WILL CONTINUE TO MONITOR CLOSELY. ENDORSED TO PM NURSE FOR CLARY.
[2019-01-08 20:00] VITALS: BP 92/54
[2019-01-08] MEDS: PIPERACILLIN /TAZOBACTAM 2.25 G in IV D5W 50 ML IV SCH (20:06)
[2019-01-08] MEDS: DOCUSATE SODIUM LIQ 100 MG/10 ML UDC GT SCH (20:08)
[2019-01-08] MEDS: LEVETIRACETAM SOL (5 ML) 100 MG/ML UDC GT SCH (20:08)
[2019-01-08] MEDS: HYDROCODONE/APAP 10/325MG 1 EA TABLET GT PRN (20:09)
[2019-01-08] MEDS: LACTOBACILLUS RHAMNOSUS GG 1 EACH CAP.SPRINK GT SCH (20:09)
[2019-01-08] MEDS: clonazePAM 0.5 MG TABLET GT SCH (20:09)
--- NOTE | 2019-01-08 20:23 | NUR ---
PT RECEIVED TRACH PORTEX 8 ON [facility] VENT WITH NOTED SETTINGS. PT IS NON VERBAL, RESPONDS TO STIMULI WHEN SUCTIONED . SX'D AND LAVAGED NEEDED. WAREHOUSE DISTRIBUTION SPECIALIST DONE. VENT ALARMS SET AND AUDIBLE. AMBU BAG AT BEDSIDE. TRACH SECURE. WILL CONTINUE TO MONITOR.
[2019-01-08] MEDS: SENNOSIDES 8.6 MG TABLET GT SCH (21:05)
[2019-01-09] VITALS: BP 112/50
[2019-01-09] MEDS: HYDROCODONE/APAP 10/325MG 1 EA TABLET GT PRN (01:53)
[2019-01-09 04:00] VITALS: BP 115/57
[2019-01-09] MEDS: PIPERACILLIN /TAZOBACTAM 2.25 G in IV D5W 50 ML IV SCH ×3 (05:24→20:58)
[2019-01-09 07:18] LABS: BASOPHILS # (AUTO) 0.1 /CMM (0.0-0.2); BASOPHILS % (AUTO) 0.9 % (0.0-2.0); EOSINOPHILS % (AUTO) 2.2 % (0.0-6.0); HEMATOCRIT 32 % (39-51); HEMOGLOBIN 10.4 g/dL (13.5-17.5); LYMPHOCYTES # (AUTO) 1.6 /CMM (0.8-4.8); LYMPHOCYTES % (AUTO) 16.2 % (20.0-44.0); MEAN CORPUSCULAR HGB CONC 33 g/dl (31.0-36.0); MEAN CORPUSCULAR VOLUME 98 fL (80-96); MONOCYTES % (AUTO) 9.9 % (2.0-12.0); NEUTROPHILS # (AUTO) 6.8 /CMM (1.8-8.9); NEUTROPHILS % (AUTO) 70.8 % (43.0-81.0); PLATELET COUNT (AUTO) 227 /CMM (150-450); RED BLOOD CELL COUNT(AUTO) 3.26 MIL/uL (4.5-6.0); WHITE BLOOD COUNT (AUTO) 9.6 K/uL (4.3-11.0)
--- NOTE | 2019-01-09 07:24 | NUR ---
WOUND CARE CONSULT: PT FOLLOWED BY PLASTIC SURGERY TEAM. DEFER TO SURGICAL TEAM FOR WOUND TREATMENT PLAN. RECOMMENDATIONS MADE FOR SKIN PROTECTION. DISCUSSED WITH NURSING STAFF. FIRST STEP LOW AIRLOSS MATTRESS ORDERED. CURRENT SARI SCORE IS 12. WILL SEE PRN.
--- NOTE | 2019-01-09 07:25 | NUR ---
TELE/RN OPENING NOTES RECEIVED PATIENT IN BED RESTING COMFORTABLY. PATIENT ABLE TO RESPOND TO TACTILE STIMULI. NO PAIN OR ACUTE DISTRESS AT THIS TIME. RESPIRATION EVEN AND UNLABORED. PATIENT ABLE TO TOLERATE CURRENT VENT SETTINGS WELL. SKIN IS DRY WARM TO TOUCH. PATIENT NOTED WITH GT AND IV ACCESS ON LEFT AC #18G. INTACT AND PATENT. FLUSHING WELL. NO RESIDUAL. HOB ELEVATED AT ALL TIME. ALL NEEDS ANTICIPATED. CALL LIGHT WITHIN REACHED. SAFETY MAINTAINED. BED LOCKED AND IN LOWEST POSITION. REPOSITIONED Q2HRS. WILL CONTINUE TO MONITOR CLOSELY.
[2019-01-09 07:28] LABS: CALCIUM, SERUM 9.8 mg/dL (8.5-10.1); CREATININE 6.9 mg/dL (0.6-1.3); PHOSPHORUS 3.4 mg/dL (2.5-4.9)
[2019-01-09 08:00] VITALS: BP 105/73
[2019-01-09] MEDS: FERROUS SULFATE UDC 300 MG/5 ML UDC GT SCH (08:33)
[2019-01-09] MEDS: FOLIC ACID 1 MG TABLET GT SCH (08:33)
[2019-01-09] MEDS: DOCUSATE SODIUM LIQ 100 MG/10 ML UDC GT SCH ×2 (08:33→20:57)
[2019-01-09] MEDS: MIDODRINE HCL (5MG) 5 MG TABLET GT SCH ×3 (08:33→17:00)
[2019-01-09] MEDS: LEVETIRACETAM SOL (5 ML) 100 MG/ML UDC GT SCH ×2 (08:33→20:57)
[2019-01-09] MEDS: clonazePAM 0.5 MG TABLET GT SCH ×2 (08:33→20:57)
[2019-01-09] MEDS: SEVELAMER CARBONATE 0.8 GM POWD.PACK GT SCH ×3 (08:33→17:00)
[2019-01-09] MEDS: LACTOBACILLUS RHAMNOSUS GG 1 EACH CAP.SPRINK GT SCH ×2 (08:33→20:57)
[2019-01-09] MEDS: Z GUARD REMEDY 2 OZ OINT TP SCH ×2 (08:37→20:58)
[2019-01-09 12:00] VITALS: BP 111/63
--- NOTE | 2019-01-09 14:00 | NUR ---
TELE/RN NOTES MEDICATION VANCO WAS NOT GIVEN POST HD DUE TO VANCO TROUGH OF 24. PATIENT CONTINUES TO REMAIN IN STABLE CONDITION. WILL CONTINUE TO MONITOR CLOSELY.
[2019-01-09] MEDS ORDERED: VANCOMYCIN 500 MG in IV D5W 100 ML IV PRN (15:00)
[2019-01-09] MEDS: AMIODARONE HCL 200 MG TABLET GT SCH (15:17)
[2019-01-09 16:00] VITALS: BP 118/54
--- NOTE | 2019-01-09 19:11 | NUR ---
TELE/RN CLOSING NOTES PATIENT CONTINUES TO REMAIN IN STABLE CONDITION THROUGHOUT THE SHIFT. PROVIDED COMFORT AND SAFETY. PATIENT ABLE TO TOLERATE CURRENT VENT SETTINGS WELL. SKIN IS DRY WARM TO TOUCH. PATIENT NOTED WITH GT AND IV ACCESS ON LEFT AC #18G. INTACT AND PATENT. FLUSHING WELL. NO RESIDUAL. HOB ELEVATED AT ALL TIME. PATIENT HAD DIALYSIS TODAY WITH 2LITERS OUT. ALL NEEDS ANTICIPATED. CALL LIGHT WITHIN REACHED. SAFETY MAINTAINED. BED LOCKED AND IN LOWEST POSITION. REPOSITIONED Q2HRS. WILL CONTINUE TO MONITOR CLOSELY. ENDORSED TO PM NURSE FOR CLARY.
--- NOTE | 2019-01-09 19:25 | NUR ---
TELE/RN NOTES PATIENT IN BED, RESTING COMFORTABLY AT THIS TIME, NO S/S OF ACUTE DISTRESS NOTED, RESPIRATION EVEN AND UNLABORED, NO SOB NOTED. PATIENT OBTUNDED, NO S/S OF PAIN NOTED. TRACH INTACT, PATENT, CONNECTED TO VENT WITH PRESCRIBED SETTINGS. G-TUBE IN PLACE, PATENT CONNECTED TO FEEDING ORDERED, HOB ELEVATED AT ALL THE TIME, NO RESIDUAL AT THIS TIME. IV SITE WITH NO S/S OF INFECTION, INFILTRATION. PATIENT ON TELE MONITORING WITH SINUS RHYTHM/ SINUS TACHY. SAFETY MAINTAINED, BED AT THE LOWEST LOCKED POSITION. CALL LIGHT WITHIN REACH. WILL CONTINUE TO MONITOR PATIENT PER PLAN OF CARE.
[2019-01-09] MEDS: NEPRO 1,000 ML BOTTLE GT SCH (19:38)
[2019-01-09 20:00] VITALS: BP 110/74
--- NOTE | 2019-01-09 20:26 | NUR ---
PT RECEIVED TRACH PORTEX 8 ON [facility] VENT WITH NOTED SETTINGS. PT IS NON VERBAL, RESPONDS TO STIMULI WHEN SUCTIONED . SX'D AND LAVAGED NEEDED. BULLET SWAGING MACHINE ADJUSTER DONE. VENT ALARMS SET AND AUDIBLE. AMBU BAG AT BEDSIDE. TRACH SECURE. WILL CONTINUE TO MONITOR.
[2019-01-09] MEDS: SENNOSIDES 8.6 MG TABLET GT SCH (21:00)
[2019-01-10] VITALS: BP 101/60
[2019-01-10 04:00] VITALS: BP 102/73
[2019-01-10] MEDS: PIPERACILLIN /TAZOBACTAM 2.25 G in IV D5W 50 ML IV SCH ×2 (05:33→13:35)
--- NOTE | 2019-01-10 06:35 | NUR ---
TELE/RN NOTES PATIENT REMAINED IN BED, RESTING COMFORTABLY AT THIS TIME, NO S/S OF ACUTE DISTRESS NOTED, RESPIRATION EVEN AND UNLABORED, NO SOB NOTED. NO S/S OF PAIN NOTED. TRACH INTACT, PATENT, CONNECTED TO VENT WITH PRESCRIBED SETTINGS. G-TUBE IN PLACE, PATENT CONNECTED TO FEEDING ORDERED, HOB ELEVATED AT ALL THE TIME, NO RESIDUAL AT THIS TIME. IV SITE WITH NO S/S OF INFECTION, INFILTRATION. HD CATH ON LEFT FEMORAL INTACT, PATENT, DRESSING INTACT. PATIENT ON TELE MONITORING WITH SINUS RHYTHM. ALL DUE MEDS GIVEN ORDERED, TREATMENTS RENDERED. PATIENT TOLERATED WELL. SAFETY MAINTAINED, BED AT THE LOWEST LOCKED POSITION. CALL LIGHT WITHIN REACH. WILL ENDORSE TO AM SHIFT NURSE FOR CLARY.
--- NOTE | 2019-01-10 07:28 | NUR ---
TELE OPENING NOTE PATIENT AWAKE IN BED, TRACH INTACT, CONNECTED TO VENT WITH PRESCRIBED SETTINGS, TOLERATING SETTINGS WELL, NO SIGNS OF RESPIRATORY DISTRESS NOTED. G-TUBE IN PLACE, PATENT, INFUSING NEPHRO AT 45ML/HR, TOLERATING FEEDING WELL. HOB ELEVATED. IV SITE ON LEFT AC G18 PATENT, INTACT, HD CATH ON LEFT FEMORAL INTACT, PATENT, DRESSING INTACT. PATIENT ON TELE MONITORING WITH SINUS TACH 101. BED IN LOW POSITION, LOCKED, CALL LIGHT WITHIN REACH.
[2019-01-10 07:35] LABS: CALCIUM, SERUM 10.2 mg/dL (8.5-10.1); CREATININE 6.5 mg/dL (0.6-1.3); POTASSIUM 3.5 mmol/L (3.5-5.1)
[2019-01-10 08:00] VITALS: BP 101/68
[2019-01-10] MEDS: LEVETIRACETAM SOL (5 ML) 100 MG/ML UDC GT SCH (08:22)
[2019-01-10] MEDS: FOLIC ACID 1 MG TABLET GT SCH (08:23)
[2019-01-10] MEDS: FERROUS SULFATE UDC 300 MG/5 ML UDC GT SCH (08:23)
[2019-01-10] MEDS: LACTOBACILLUS RHAMNOSUS GG 1 EACH CAP.SPRINK GT SCH (08:23)
[2019-01-10] MEDS: clonazePAM 0.5 MG TABLET GT SCH (08:24)
[2019-01-10] MEDS: SEVELAMER CARBONATE 0.8 GM POWD.PACK GT SCH ×3 (08:24→16:47)
[2019-01-10] MEDS: AMIODARONE HCL 200 MG TABLET GT SCH (08:31)
[2019-01-10] MEDS: MIDODRINE HCL (5MG) 5 MG TABLET GT SCH ×3 (08:31→16:47)
[2019-01-10] MEDS: Z GUARD REMEDY 2 OZ OINT TP SCH (08:32)
[2019-01-10] MEDS: DOCUSATE SODIUM LIQ 100 MG/10 ML UDC GT SCH (08:33)
[2019-01-10 12:00] VITALS: BP 119/61
--- NOTE | 2019-01-10 13:02 | NUR ---
CALLED AND GAVE TELEPHONE REPORT TO MELISSA KENNEDY AT [facility]
[2019-01-10 16:00] VITALS: BP 129/60
[2019-01-10 16:47] VITALS: BP 129/60
--- NOTE | 2019-01-10 18:37 | NUR ---
DISCHARGE PHOTO TAKEN, PLACED INTO CHART
--- NOTE | 2019-01-10 18:37 | NUR ---
AUDIO/VISUAL MANAGER CLOSING NOTE PATIENT ASLEEP IN BED, TRACH INTACT, CONNECTED TO VENT WITH PRESCRIBED SETTINGS, TOLERATING SETTINGS WELL, NO SIGNS OF RESPIRATORY DISTRESS NOTED. G-TUBE IN PLACE, PATENT, INFUSING NEPHRO AT 45ML/HR, TOLERATING FEEDING WELL. HOB ELEVATED. IV SITE ON LEFT AC G18 PATENT, INTACT, WITH SALINE LOCK. HD CATH ON LEFT FEMORAL INTACT, PATENT, DRESSING INTACT. PATIENT ON TELE MONITORING WITH SINUS RHYTHM. BED IN LOW POSITION, LOCKED, CALL LIGHT WITHIN REACH. PROVIDED SAFETY AND COMFORT TO PT THROUGHOUT SHIFT, ALL DUE MEDS GIVEN, ALL DISCHARGE PAPERWORK COMPLETED. FAMILY NOTIFIED OF PATIENT'S UPCOMING DISCHARGE TO [facility]- SPOKE WITH MYRIAM (SISTER) ON THE PHONE.
--- NOTE | 2019-01-10 19:03 | NUR ---
GAVE REPORT TO [facility] BY PT'S BEDSIDE. PT IN STABLE CONDITION.
--- NOTE | 2019-01-10 19:10 | NUR ---
PT LEFT UNIT IN STABLE CONDITION [facility]
== END 2019-01-10 19:05 | DRG 720 ==
LOC: ER 09:55 → TELE-TD 12:16 → TELE1 16:07
PROVIDERS: ADMIT Nurse Practitioner Acute Care; ATTEND Nurse Practitioner Acute Care
PROC: 5A1945Z Respiratory Ventilation, 24-96 Consecutive Hours (ICD-10-PCS; principal; 2019-01-08)
PROC: 5A1D70Z Performance of Urinary Filtration, Intermittent, Less than 6 Hours Per Day (ICD-10-PCS; 2019-01-09)
DX: A41.9 Sepsis, unspecified organism (principal); R57.9 Shock, unspecified; Z99.11 Dependence on respirator [ventilator] status; G93.1 Anoxic brain damage, not elsewhere classified; I13.2 Hypertensive heart and chronic kidney disease with heart failure and with stage 5 chronic kidney disease, or end stage renal disease; J18.9 Pneumonia, unspecified organism; J96.10 Chronic respiratory failure, unspecified whether with hypoxia or hypercapnia; D68.59 Other primary thrombophilia; Z93.0 Tracheostomy status; N18.6 End stage renal disease; Z99.2 Dependence on renal dialysis; G40.909 Epilepsy, unspecified, not intractable, without status epilepticus; D53.9 Nutritional anemia, unspecified; D63.8 Anemia in other chronic diseases classified elsewhere; Z93.1 Gastrostomy status; R13.10 Dysphagia, unspecified; I48.0 Paroxysmal atrial fibrillation; E11.22 Type 2 diabetes mellitus with diabetic chronic kidney disease; Z86.74 Personal history of sudden cardiac arrest; Z86.718 Personal history of other venous thrombosis and embolism; Z74.01 Bed confinement status; L98.8 Other specified disorders of the skin and subcutaneous tissue; L30.9 Dermatitis, unspecified; I50.9 Heart failure, unspecified; I25.10 Atherosclerotic heart disease of native coronary artery without angina pectoris; I25.2 Old myocardial infarction; K21.9 Gastro-esophageal reflux disease without esophagitis; R00.0 Tachycardia, unspecified
CPT/HCPCS: 31720; 36415; 71045-TC; 80048-TC; 80061-TC; 80076-TC; 80202-TC; 82533; 83605-TC; 83735-TC; 84100-TC; 84439-TC; 84443-TC; 84484-TC; 85025-TC; 85730-TC; 87040-TC; 87081-TC; 90935-TC; 93307-TC; 94002-TC; 94003-TC; 94760-TC; 94762-TC; A4623; G0378; J1953; J2543; J3480; J7040; J7050; J7060

== ENCOUNTER 2019-02-26 10:57 | Inpatient (IN) | payer MEDICAID ==
[~2019-02-26] VITALS: Ht 167.6 cm; Wt 79.8 kg
[~2019-02-26 10:57] MED LIST changes: -ACID1TAB12 GT; +AMIN30LI2 GT; -BLOO-668 IN; -CEFE1FRO IV; +FERR300L GT; -INSU100V27 SQ; -MINE3.5O EACHEYE; -Nepro GT
[2019-02-26] MEDS ORDERED: IV NS 0.9% 1,000 ML BAG IV ONE (11:00)
[2019-02-26 11:17] LABS: BASOPHILS # (AUTO) 0.1 /CMM (0.0-0.2); BASOPHILS % (AUTO) 0.5 % (0.0-2.0); EOSINOPHILS % (AUTO) 0.8 % (0.0-6.0); HEMATOCRIT 37 % (39-51); HEMOGLOBIN 11.9 g/dL (13.5-17.5); LYMPHOCYTES # (AUTO) 1.2 /CMM (0.8-4.8); LYMPHOCYTES % (AUTO) 10.5 % (20.0-44.0); MEAN CORPUSCULAR HGB CONC 32 g/dl (31.0-36.0); MEAN CORPUSCULAR VOLUME 96 fL (80-96); MONOCYTES # (AUTO) 0.5 /CMM (0.1-1.30); MONOCYTES % (AUTO) 4.4 % (2.0-12.0); NEUTROPHILS # (AUTO) 9.3 /CMM (1.8-8.9); NEUTROPHILS % (AUTO) 83.8 % (43.0-81.0); PLATELET COUNT (AUTO) 202 /CMM (150-450); RED BLOOD CELL COUNT(AUTO) 3.86 MIL/uL (4.5-6.0); WHITE BLOOD COUNT (AUTO) 11.1 K/uL (4.3-11.0)
[2019-02-26 11:24] LABS: CALCIUM, SERUM 10.3 mg/dL (8.5-10.1); CREATININE 5.1 mg/dL (0.6-1.3); POTASSIUM 3.8 mmol/L (3.5-5.1)
[2019-02-26 11:30] LABS: ALBUMIN 3.9 g/dL (3.4-5.0); BILIRUBIN,DIRECT 0.1 mg/dL (0.0-0.2); BILIRUBIN,TOTAL 0.6 mg/dL (0.2-1.0); TOTAL PROTEIN, SERUM 9.1 g/dL (6.4-8.2)
--- NOTE | 2019-02-26 11:31 | NUR ---
Patient came to ED BIB EMS from [facility] low BP 80 per report ,trac vented ,palce on monitor ,EKG heplock rectal temp 99.8
--- NOTE | 2019-02-26 12:06 | NUR ---
Pt eyes open, nonverbal, eyes track, on dialysis perma cath on left thigh
[2019-02-26] MEDS ORDERED: MEROPENEM 1,000 MG in IV NS 0.9% 100 ML IV ONE (13:00)
--- NOTE | 2019-02-26 13:12 | NUR ---
Called Ph[facility] for meds
[2019-02-26] MEDS ORDERED: MEROPENEM 1 G in IV NS 0.9% 100 ML IV ONE (13:30)
--- NOTE | 2019-02-26 13:45 | NUR ---
[facility] PAGED
--- NOTE | 2019-02-26 14:41 | NUR ---
GOT BED 325-1
[2019-02-26] MEDS ORDERED: MORPHINE SULFATE INJ 2 MG/ML DISP.SYRIN IV PRN (15:00)
[2019-02-26] MEDS ORDERED: ALBUTEROL FS 2.5 MG/0.5 ML VIAL.NEB NEB PRN (15:00)
[2019-02-26] MEDS ORDERED: DEXTROSE 50%-WATER 50 ML DISP.SYRIN IV PRN (15:00)
[2019-02-26] MEDS ORDERED: IPRATROPIUM NEB FS 0.5 MG/2.5 ML AMPUL.NEB NEB PRN (15:00)
[2019-02-26] MEDS ORDERED: MAGNESIUM HYDROXIDE 30 ML UDC PO PRN (15:00)
[2019-02-26] MEDS ORDERED: HYDROCODONE/APAP 5/325MG 1 EACH TABLET PO PRN (15:00)
[2019-02-26] MEDS ORDERED: ACETAMINOPHEN 325 MG TABLET PO PRN (15:00)
[2019-02-26] MEDS ORDERED: ONDANSETRON HCL/PF 4 MG/2 ML VIAL IVP PRN (15:00)
[2019-02-26] MEDS ORDERED: MAG HYDROX/AL HYDROX/SIMETH 30 ML UDC PO PRN (15:00)
[2019-02-26] MEDS ORDERED: Z GUARD REMEDY 2 OZ OINT TP PRN (15:00)
--- NOTE | 2019-02-26 15:10 | NUR ---
Trasfer patient to 325-1 given report to Fan transfer with acls RT, and EMT ,RN patient vitals stable
--- NOTE | 2019-02-26 15:10 | NUR ---
PREVENTATIVE MAINTENANCE TECHNICIANRAYON CONER NOTE RECEIVED PATIENT BY MILADYS. PATIENT ON VENT SETTINGS, TOLERATING VENT SETTINGS WELL. VENT SETTINGS ARE TIDAL VOLUME 500, PEEP 5, RATE 12, O2 40%. PATIENT ON CARDIAC MONITORING, SINUS WITH FIRST DEGREE AV BLOCK, WITH PVCS HR IS 88. PATIENT IN NO ACUTE DISTRESS. NO SOB NOTED. PATIENT BREATHING IS EVEN AND UNLABORED. PATIENT GTUBE INTACT, PATENT, CLEAN AND DRY. PERMACATH ON LEFT THIGH INTACT, DRY, CLEAN DRESSING. PATIENT BED IS LOCKED AND IN LOWEST POSITION. CALL LIGHT WITHIN REACH. HOB IS ELEVATED. SAFETY PRECAUTIONS IN PLACE. BED ALARM IS ON. WILL CONTINUE TO MONITOR.
[2019-02-26] MEDS ORDERED: FEE PK DOSING 1 MIN EA MC ONE ×2 (15:12)
[2019-02-26 15:30] VITALS: BP_SYST 110; BP_SYST 111; BP_DIAS 80
[2019-02-26] MEDS ORDERED: PROSTAT (PYXIS) 30 ML UDC GT SCH (15:30)
[2019-02-26] MEDS ORDERED: VANCOMYCIN 1 GM in IV D5W 250 ML IV ONE (16:00)
[2019-02-26] MEDS: PROSOURCE / PROSTAT (PYXIS) 30 ML UDC GT SCH (16:38)
[2019-02-26] MEDS: BLOOD SUGAR DIAGNOSTIC 1 EACH STRIP IN SCH ×2 (16:56→21:41)
[2019-02-26] MEDS: SEVELAMER CARBONATE 0.8 GM POWD.PACK GT SCH (16:56)
--- NOTE | 2019-02-26 17:35 | NUR ---
DORMITORY SUPERVISOR OPENING NOTES DORMITORY SUPERVISOR CLOSING NOTE PATIENT IN BED RESTING COMFORTABLY. PATIENT BREATHING EVEN AND UNLABORED. SHOWS NO SIGNS OF ACUTE DISTRESS, NO ACUTE PAIN. PATIENT ON VENT TOLERATING VENT SETTINGS WELL. PATIENT TIDAL VOLUME 500, PEEP 5, RESP. RATE 12, O2 40%. PATIENT ON CARDIAC MONITORING SR FIRST DEGREE AV BLOCK WITH PVC HR 90'S. PATIENT ON GTUBE FEEDING NEPRO 45ML/HR. PATIENT PERMACATH INTACT, CLEAN, AND DRY. PATIENT GTUBE IS CLEAN, DRY, AND PATENT. IV ON RAC 20G SALINE LOCK, CLEAN DRY AND INTACT. SHOWS NO REDNESS, NO SIGNS OF INFILTRATION. SAFETY PRECAUTIONS IN PLACE. PATIENT BED IS LOCKED, LOWEST POSITION. HOB IS ELEVATED, CALL LIGHT WITHIN REACH. WILL CONTINUE TO MONITOR. Addendum: 02/26/19 at 2247 by RACHEAL NEW RN WRONG TIME FOR NOTES
[2019-02-26] MEDS ORDERED: NEPRO 1,000 ML BOTTLE GT PRN (18:00)
[2019-02-26] MEDS ORDERED: PIPERACILLIN /TAZOBACTAM 3.375 G in IV D5W 50 ML IV SCH (18:00)
--- NOTE | 2019-02-26 18:00 | NUR ---
CONTACT WORKER NOTE PATIENT TO CONTINUE ON SAME GTUBE FEEDING NEPRO FROM SNF PER LEE ANTHONY
--- NOTE | 2019-02-26 18:49 | NUR ---
CHARGE ATTENDANT NOTE PER MEDICAL PRACTITIONERS GABRIELLE DESAI TO PUT ORDER FOR STRAIGHT CATH TO OBTAIN URINE CULTURE.
--- NOTE | 2019-02-26 19:19 | NUR ---
PHARMACY DATA ANALYST CLOSING NOTE PATIENT IN BED RESTING COMFORTABLY. PATIENT IN NO ACUTE DISTRESS. NO SOB NOTED. PATIENT BREATHING IS EVEN AND UNLABORED. PATIENT ON VENT TOLERATING VENT SETTINGS WELL. PATIENT TIDAL VOLUME 500, PEEP 5, RESP. RATE 12, O2 40%. PATIENT ON CARDIAC MONITORING SR FIRST DEGREE AV BLOCK HR 89. PATIENT KEPT CLEAN, DRY, AND COMFORTABLE THROUGHOUT SHIFT.PATIENT TURNED AND REPOSITIONED Q2H. PATIENT EXTREMITIES OFFLOADED ON PILLOWS. ATTEMPTED TO OBTAIN URINE SAMPLE THROUGH STRAIGHT CATH, UNABLE TO OBTAIN NO URINE PRESENT PATIENT URINATED BEFORE OBTAINING. ENDORSED TO BOAT LOADER TO OBTAIN URINE CULTURE THROUGH STRAIGHT CATH. PATIENT ON GTUBE FEEDING NEPRO 45ML/HR. PATIENT PERMACATH INTACT, CLEAN, AND DRY. PATIENT GTUBE IS CLEAN, DRY, AND PATENT. PATIENT BED IS LOCKED AND IN LOWEST POSITION. HOB IS ELEVATED. PATIENT BED ALARM IS ON. PATIENT CALL LIGHT WITHIN REACH. WILL ENDORSE CARE TO PM SHIFT FOR CLARY.
--- NOTE | 2019-02-26 19:35 | NUR ---
LIVE IN COMPANION OPENING NOTES PATIENT IN BED RESTING COMFORTABLY. PATIENT BREATHING EVEN AND UNLABORED. SHOWS NO SIGNS OF ACUTE DISTRESS, NO ACUTE PAIN. PATIENT ON VENT TOLERATING VENT SETTINGS WELL. PATIENT TIDAL VOLUME 500, PEEP 5, RESP. RATE 12, O2 40%. PATIENT ON CARDIAC MONITORING SR FIRST DEGREE AV BLOCK WITH PVC HR 90'S. PATIENT ON GTUBE FEEDING NEPRO 45ML/HR. PATIENT PERMACATH INTACT, CLEAN, AND DRY. PATIENT GTUBE IS CLEAN, DRY, AND PATENT. IV ON RAC 20G SALINE LOCK, CLEAN DRY AND INTACT. SHOWS NO REDNESS, NO SIGNS OF INFILTRATION. SAFETY PRECAUTIONS IN PLACE. PATIENT BED IS LOCKED, LOWEST POSITION. HOB IS ELEVATED, CALL LIGHT WITHIN REACH. WILL CONTINUE TO MONITOR.
[2019-02-26 20:00] VITALS: BP 90/63
[2019-02-26] MEDS: PIPERACILLIN /TAZOBACTAM 2.25 G in IV D5W 50 ML IV SCH (21:41)
[2019-02-26] MEDS: DOCUSATE SODIUM LIQ 100 MG/10 ML UDC GT SCH (21:41)
[2019-02-26] MEDS: LACTOBACILLUS RHAMNOSUS GG 1 EACH CAP.SPRINK GT SCH (21:41)
[2019-02-26] MEDS: LEVETIRACETAM SOL (5 ML) 100 MG/ML UDC GT SCH (21:41)
[2019-02-26] MEDS: SENNOSIDES 8.6 MG TABLET GT SCH (21:42)
[2019-02-26] MEDS: clonazePAM 0.5 MG TABLET GT SCH (21:42)
[2019-02-27] VITALS (7 sets, daily range): BP systolic 91–116; BP diastolic 58–83
--- NOTE | 2019-02-27 00:45 | NUR ---
RN NOTES CALLED PHARMACY PROGRAM PROPOSALS COORDINATOR AND INFORMED HIM REGARDING THE DOCTOR'S ORDER OF VANCO THROUGH BUT THERE'S NO SPECIFIC TIME.. EXPLAINED TO THE PHARMACY THAT PT. RECEIVED HIS FIRST DOSE YESTERDAY AT 1638... PER PHARMACY JUST ORDER VANCO RANDOM IN THE MORNING
--- NOTE | 2019-02-27 01:31 | NUR ---
RN NOTES PT. BLOOD PRESSURE WAS 80/60.. SPOKE TO AI RUBIO REGARDING PT. BLOOD PRESSURE . .. GOT AN ORDER TO GIVE NS BOLUS 500ML, ORDER NOTED AND CARRIED OUT. DR. ESTRADA WAS ALSO ASKING WHY THEY HELD THE MIDODRINE HCL 5MG ORDER.. WILL SPEAK TO THE PHARMACY
[2019-02-27] MEDS ORDERED: IV NS 0.9% 500 ML IV STA (01:34)
--- NOTE | 2019-02-27 01:55 | NUR ---
RN NOTES SPOKE TO PHARMACY MOTION PICTURE DIRECTOR AND PER PHARMACY THE DOCTOR NEEDS TO GIVE PARAMETER WHEN GIVING THIS MEDICATION.. WILL CALL AI RUBIO AGAIN FOR PARAMETER ORDER
--- NOTE | 2019-02-27 01:58 | NUR ---
RN NOTES SPOKE TO AI RUBIO AND GOT AN ORDER FOR PARAMETER FOR MEDICATION MIDODRINE HCL, ORDER NOTED AND CARRIED OUT
[2019-02-27] MEDS ORDERED: IV NS 0.9% 500 ML BAG IV ONE (02:00)
--- NOTE | 2019-02-27 03:42 | NUR ---
RN NOTES INFORMED AI RUBIO REGARDING PT. 'S BP 90/54. DR. ESTRADA ORDERED MIDODRINE HCL 5MG X1, ORDER NOTED NAD CARRIED OUT
[2019-02-27] MEDS ORDERED: MIDODRINE HCL (5MG) 5 MG TABLET GT ONE (04:00)
[2019-02-27] MEDS: PIPERACILLIN /TAZOBACTAM 2.25 G in IV D5W 50 ML IV SCH ×3 (04:10→21:02)
--- NOTE | 2019-02-27 04:30 | NUR ---
RN NOTES AFTER GIVING MIDODRINE HCL 5MG GT PT. BLOOD PRESSURE WENT UP TO 97/67
[2019-02-27] MEDS: BLOOD SUGAR DIAGNOSTIC 1 EACH STRIP IN SCH ×4 (06:23→21:17)
[2019-02-27] MEDS: INSULIN REGULAR, HUMAN 100 UNIT/ML 3 ML VIAL SQ PRN (06:26)
[2019-02-27 06:36] LABS: BASOPHILS % (AUTO) 0.3 % (0.0-2.0); EOSINOPHILS % (AUTO) 1.1 % (0.0-6.0); HEMATOCRIT 32 % (39-51); HEMOGLOBIN 10.7 g/dL (13.5-17.5); LYMPHOCYTES # (AUTO) 0.7 /CMM (0.8-4.8); LYMPHOCYTES % (AUTO) 8.6 % (20.0-44.0); MEAN CORPUSCULAR HGB CONC 34 g/dl (31.0-36.0); MEAN CORPUSCULAR VOLUME 96 fL (80-96); MONOCYTES # (AUTO) 0.6 /CMM (0.1-1.30); MONOCYTES % (AUTO) 7.9 % (2.0-12.0); NEUTROPHILS # (AUTO) 6.3 /CMM (1.8-8.9); NEUTROPHILS % (AUTO) 82.1 % (43.0-81.0); PLATELET COUNT (AUTO) 186 /CMM (150-450); RED BLOOD CELL COUNT(AUTO) 3.31 MIL/uL (4.5-6.0); WHITE BLOOD COUNT (AUTO) 7.7 K/uL (4.3-11.0)
--- NOTE | 2019-02-27 06:46 | NUR ---
BUSINESS CENTER REPRESENTATIVE CLOSING NOTES PATIENT IN BED RESTING COMFORTABLY. PATIENT BREATHING EVEN AND UNLABORED. SHOWS NO SIGNS OF ACUTE DISTRESS, NO ACUTE PAIN. PATIENT ON CARDIAC MONITORING SR FIRST DEGREE AV BLOCK WITH PVC HR 83. PATIENT ON GTUBE FEEDING NEPRO 45ML/HR. PATIENT PERMACATH INTACT, CLEAN, AND DRY. PATIENT GTUBE IS CLEAN, DRY, AND PATENT. IV ON RAC 20G SALINE LOCK, CLEAN DRY AND INTACT. SHOWS NO REDNESS, NO SIGNS OF INFILTRATION. ALL ROUTINE MEDS GIVEN ORDERED. ATTENDED TO PATIENTS NEEDS. SAFETY PRECAUTIONS IN PLACE. PATIENT BED IS LOCKED, LOWEST POSITION. HOB IS ELEVATED, CALL LIGHT WITHIN REACH. WILL ENDORSE TO ONCOMING NURSE.
[2019-02-27 07:03] LABS: ALBUMIN 3.2 g/dL (3.4-5.0); BILIRUBIN,TOTAL 0.5 mg/dL (0.2-1.0); CALCIUM, SERUM 9.1 mg/dL (8.5-10.1); CREATININE 6.4 mg/dL (0.6-1.3); MAGNESIUM 2.8 mg/dL (1.8-2.4); PHOSPHORUS 3.2 mg/dL (2.5-4.9); POTASSIUM 3.7 mmol/L (3.5-5.1); TOTAL PROTEIN, SERUM 7.5 g/dL (6.4-8.2)
--- NOTE | 2019-02-27 08:00 | NUR ---
MS RN NOTES PATIENT IN BED RESTING NO SOB OR ACUTE DISTRESS NOTED. PATIENT VENT DEPENDENT. VENT SETTINGS NOTED. PATIENT WITH G-TUBE RUNNING PRESCRIBED FEEDING. BED IN LOW LOCKED POSITION. CALL LIGHT WITHIN REACH. WILL CONTINUE TO MONITOR.
[2019-02-27] MEDS: DOCUSATE SODIUM LIQ 100 MG/10 ML UDC GT SCH ×2 (08:21→21:02)
[2019-02-27] MEDS: LEVETIRACETAM SOL (5 ML) 100 MG/ML UDC GT SCH ×2 (08:21→21:02)
[2019-02-27] MEDS: SEVELAMER CARBONATE 0.8 GM POWD.PACK GT SCH ×3 (08:21→17:02)
[2019-02-27] MEDS: AMIODARONE HCL 200 MG TABLET GT SCH (08:22)
[2019-02-27] MEDS: PANTOPRAZOLE 40 MG TABLET.DR PO SCH (08:22)
[2019-02-27] MEDS: LACTOBACILLUS RHAMNOSUS GG 1 EACH CAP.SPRINK GT SCH ×2 (08:22→21:02)
[2019-02-27] MEDS: clonazePAM 0.5 MG TABLET GT SCH ×2 (08:23→21:02)
[2019-02-27] MEDS: MIDODRINE HCL (5MG) 5 MG TABLET GT SCH ×3 (08:23→17:01)
[2019-02-27] MEDS: FOLIC ACID 1 MG TABLET GT SCH (08:23)
[2019-02-27] MEDS: PROSOURCE / PROSTAT (PYXIS) 30 ML UDC GT SCH (08:25)
[2019-02-27] MEDS: FERROUS SULFATE UDC 300 MG/5 ML UDC GT SCH (08:32)
[2019-02-27] MEDS: VIT B CMPLX 3/FA/VIT C/BIOTIN 1 TAB TABLET PO SCH (08:32)
--- NOTE | 2019-02-27 14:30 | NUR ---
PLEATER HAND NOTES PATIENT WAS SEEN BY CASE MANAGEMENT MANAGER RECOMMENDATION FOR NEPHRO 45ML/HR CONTINUES FOR 24HRS. ORDERS CLEARED BY MD. ORDERS PLACED.
--- NOTE | 2019-02-27 18:35 | NUR ---
CANDY PACKER NOTES PATIENT IN BED RESTING NO SOB OR ACUTE DISTRESS NOTED. ALL DUE MEDICATIONS ADMINISTERED. ALL NEEDS MET. PATIENT VENT DEPENDENT. PERIPHERAL IV INTACT PATENT. PATIENT SCHEDULED FOR HD TOMORROW. BED IN LOW LOCKED POSITION. CALL LIGHT WITHIN REACH. WILL ENDORSE CARE TO PM SHIFT.
--- NOTE | 2019-02-27 19:31 | NUR ---
FLOOR GRINDER NOTES PATIENT IN BED RESTING. PATIENT IS NONVERBAL. SHOWS NO SIGNS OF ACUTE DISTRESS, NO SIGNS OF ACUTE PAIN. PATIENT ON VENT AND TOLERATING SETTINGS. PATIENT ON JUNIOR ACCOUNT EXECUTIVE ON SR FIRST DEGREE AV BLOCK ON 80-90'S. IV ON RAC #20G, CLEAN DRY AND INTACT, SHOWS NO SIGNS OF REDNESS, NO INFILTRATION. PATIENT ON GTUBE FEEDING NEPRO 45ML/HR. PERMACATH INTACT, CLEAN AND DRY. SAFETY PRECAUTION IN PLACE. PATIENT BED IS LOCKED, LOWEST POSITION, AND CALL LIGHT KEPT WITHIN REACH. WILL CONTINUE TO MONITOR.
--- NOTE | 2019-02-27 20:00 | NUR ---
MILK TESTER NOTES CHECK GTUBE FEEDING RESIDUAL 125CC. WILL CONTINUE TO MONITOR.
[2019-02-27] MEDS: NEPRO 1,000 ML BOTTLE GT PRN (20:07)
[2019-02-27] MEDS: SENNOSIDES 8.6 MG TABLET GT SCH (21:02)
[2019-02-28] VITALS: BP 113/78
[2019-02-28 04:00] VITALS: BP 107/78
[2019-02-28] MEDS: PIPERACILLIN /TAZOBACTAM 2.25 G in IV D5W 50 ML IV SCH ×3 (05:03→20:50)
[2019-02-28] MEDS: BLOOD SUGAR DIAGNOSTIC 1 EACH STRIP IN SCH ×4 (06:06→21:24)
[2019-02-28] MEDS: INSULIN REGULAR, HUMAN 100 UNIT/ML 3 ML VIAL SQ PRN ×3 (06:07→21:23)
--- NOTE | 2019-02-28 06:55 | NUR ---
TELEGRAPH EQUIPMENT MAINTAINER NOTES PATIENT IN BED RESTING. PATIENT IS NONVERBAL. SHOWS NO SIGNS OF ACUTE DISTRESS, NO SIGNS OF ACUTE PAIN. PATIENT ON VENT AND TOLERATING SETTINGS. PATIENT ON CHANNEL SALES DIRECTOR ON SR FIRST DEGREE AV BLOCK HR76. IV ON RAC #20G, CLEAN DRY AND INTACT, SHOWS NO SIGNS OF REDNESS, NO INFILTRATION. PATIENT ON GTUBE FEEDING NEPRO 45ML/HR. PERMA CATH INTACT, CLEAN AND DRY. ALL MEDICATIONS GIVEN ORDERED. ALL PATIENT NEEDS ATTENTED. SAFETY PRECAUTION IN PLACE. PATIENT BED IS LOCKED, LOWEST POSITION, AND CALL LIGHT KEPT WITHIN REACH. WILL ENDORSE TO ONCOMING NURSE.
--- NOTE | 2019-02-28 06:59 | NUR ---
PATIENT RECEIVED ON TRACH TO VENT WITH SETTINGS OF AC 12, 500 VT, 40%, +5. SUCTIONED WITH LAVAGE FOR MINIMAL, THIN, FROTHY, WHITE SECRETIONS. AMBU BAG AT BEDSIDE. VENT AND PULSE OXIMETER ALARMS AUDIBLE AND VISIBLE. VENT CONNECTED INTO RED OUTLET. CHANGED INNER CANNULA PORTEX 7. TRACH CARE DONE. Addendum: 02/28/19 at 0701 by MELONY CORRAL RT Amended: Links added.
[2019-02-28 07:21] LABS: BASOPHILS % (AUTO) 0.5 % (0.0-2.0); HEMATOCRIT 31 % (39-51); HEMOGLOBIN 10.2 g/dL (13.5-17.5); LYMPHOCYTES # (AUTO) 0.7 /CMM (0.8-4.8); LYMPHOCYTES % (AUTO) 8.5 % (20.0-44.0); MEAN CORPUSCULAR HGB CONC 33 g/dl (31.0-36.0); MEAN CORPUSCULAR VOLUME 97 fL (80-96); MONOCYTES # (AUTO) 0.4 /CMM (0.1-1.30); NEUTROPHILS # (AUTO) 6.6 /CMM (1.8-8.9); PLATELET COUNT (AUTO) 178 /CMM (150-450); WHITE BLOOD COUNT (AUTO) 7.9 K/uL (4.3-11.0)
--- NOTE | 2019-02-28 07:57 | NUR ---
Tele/RN Patient received in bed, none verbal, able to response all stimuli. Pt is on ventilator and no s/s of distress of breathing observed. Skin is warm and dry to touch, intact of IV site. No grimace or distress observed. Will continue to monitor.
[2019-02-28 08:00] VITALS: BP 128/82
--- NOTE | 2019-02-28 08:00 | NUR ---
Tele/RN Received phone call from Lab regarding creatine level 8.2CH, patient going HD today.
[2019-02-28 08:08] LABS: PHOSPHORUS 3.8 mg/dL (2.5-4.9); POTASSIUM 3.6 mmol/L (3.5-5.1)
[2019-02-28 08:13] LABS: CREATININE 8.2 mg/dL (0.6-1.3)
[2019-02-28] MEDS: PANTOPRAZOLE 40 MG TABLET.DR PO SCH (08:37)
[2019-02-28] MEDS: LACTOBACILLUS RHAMNOSUS GG 1 EACH CAP.SPRINK GT SCH ×2 (08:37→20:48)
[2019-02-28] MEDS: DOCUSATE SODIUM LIQ 100 MG/10 ML UDC GT SCH ×2 (08:37→21:00)
[2019-02-28] MEDS: SEVELAMER CARBONATE 0.8 GM POWD.PACK GT SCH ×3 (08:37→17:28)
[2019-02-28] MEDS: FERROUS SULFATE UDC 300 MG/5 ML UDC GT SCH (08:37)
[2019-02-28] MEDS: FOLIC ACID 1 MG TABLET GT SCH (08:38)
[2019-02-28] MEDS: VIT B CMPLX 3/FA/VIT C/BIOTIN 1 TAB TABLET PO SCH (08:38)
[2019-02-28] MEDS: clonazePAM 0.5 MG TABLET GT SCH ×2 (08:38→20:48)
[2019-02-28] MEDS: LEVETIRACETAM SOL (5 ML) 100 MG/ML UDC GT SCH ×2 (08:38→20:48)
[2019-02-28] MEDS: AMIODARONE HCL 200 MG TABLET GT SCH (08:39)
[2019-02-28] MEDS: PROSOURCE / PROSTAT (PYXIS) 30 ML UDC GT SCH (08:52)
[2019-02-28] MEDS: MIDODRINE HCL (5MG) 5 MG TABLET GT SCH ×3 (09:00→17:00)
--- NOTE | 2019-02-28 09:39 | NUR ---
WOUND CARE CONSULT: PT FOLLOWED BY PLASTIC SURGERY TEAM FOR WOUND CARE. DEFER TO SURGICAL TEAM FOR WOUND TREATMENT PLAN. RECOMMENDATIONS MADE FOR SKIN PROTECTION. DISCUSSED WITH NURSING STAFF. PT ON RIVERSIDE ISOFLEX LOW AIRLOSS BED. WILL SEE PRN. ROD IN AGREEMENT WITH PLAN OF CARE. CURRENT SARI SCORE IS 13.
--- NOTE | 2019-02-28 11:00 | NUR ---
Tele/RN Dr. Prieto Kirby made aware creatine level 8.2 CH result during facility.
[2019-02-28] MEDS: VANCOMYCIN POST DIALYSIS 500MG IV PRN ×2 (13:33)
[2019-02-28 16:00] VITALS: BP 115/71
--- NOTE | 2019-02-28 19:15 | NUR ---
PLUGGING MACHINE OPERATOR PM NOTES BEDSIDE REPORT RECIEVED FROM DANA KENNEDY. PATIENT IN BED IN SEMIFOWLERS POSITION. PATIENT IS NONVERBAL. SHOWS NO SIGNS OF ACUTE DISTRESS, NO SIGNS OF ACUTE PAIN. PATIENT ON VENT AND TOLERATING SETTINGS. PATIENT ON ORDER CONTROL CLERK BLOOD BANK ON SR FIRST DEGREE AV BLOCK WITH OCCOASIONAL PVC PER DRAWBRIDGE TENDER. IV ON RAC #20G, CLEAN DRY AND INTACT, SHOWS NO SIGNS OF REDNESS, NO INFILTRATION CURRENTLY HEPLOCKED. . PATIENT ON GTUBE FEEDING NEPRO 45ML/HR. PERMA CATH INTACT, CLEAN AND DRY TO LEFT LEG. HD COMPLETED TODAY 2LITERS TAKEN OFF. SAFETY PRECAUTION IN PLACE. PATIENT BED IS LOCKED, LOWEST POSITION, AND CALL LIGHT KEPT WITHIN REACH. BROTHPEÑA HEADLEY ARRIVED AND IS AT THE BEDSIDE FOR A VISIT. REVIEWED POC. QUESTIONS CONCERNS ADDRESSED. WILL CONT TO MONITOR PT.
--- NOTE | 2019-02-28 19:50 | NUR ---
MS RN NOTES PATIENT IN BED RESTING NO SOB OR ACUTE DISTRESS NOTED. ALL DUE MEDICATIONS ADMINISTERED. ALL NEEDS MET. ENDORSED CARE TO PM SHIFT.
[2019-02-28 20:00] VITALS: BP 120/80
--- NOTE | 2019-02-28 20:15 | NUR ---
BLOOD CULTURES TAKEN BY FERN KENNEDY HD NURSE. LAB CALLED FOR PICKUP STATE THEY WILL BE UP SOON TO ELEVATORS INSPECTOR FOR PROCESSING.
--- NOTE | 2019-02-28 20:37 | NUR ---
PT RECEIVED TRACHED ON MECHANICAL VENTILATION WTH NOTED SETTINGS . AMBU BAG/ BACK UP TRACH @ BEDSIDE. SX DONE PRN. ALARMS ON AND AUDIBLE. VENT PLUGGED TO RED OUTLET. CONT. PULSE OX CONNECTED. NO SOB NOTED AT THIS TIME. WILL CONTINUE TO MONITOR PT T/O SHIFT.
[2019-02-28] MEDS: SENNOSIDES 8.6 MG TABLET GT SCH (21:09)
[2019-03-01] VITALS: BP 114/82
[2019-03-01 04:00] VITALS: BP 122/88
[2019-03-01] MEDS: PIPERACILLIN /TAZOBACTAM 2.25 G in IV D5W 50 ML IV SCH ×3 (05:03→20:59)
[2019-03-01] MEDS: BLOOD SUGAR DIAGNOSTIC 1 EACH STRIP IN SCH ×4 (05:54→21:16)
[2019-03-01] MEDS: INSULIN REGULAR, HUMAN 100 UNIT/ML 3 ML VIAL SQ PRN ×3 (06:00→21:21)
[2019-03-01 07:11] LABS: BASOPHILS % (AUTO) 0.3 % (0.0-2.0); EOSINOPHILS % (AUTO) 1.7 % (0.0-6.0); HEMATOCRIT 30 % (39-51); HEMOGLOBIN 9.7 g/dL (13.5-17.5); LYMPHOCYTES % (AUTO) 23.7 % (20.0-44.0); MEAN CORPUSCULAR HGB CONC 33 g/dl (31.0-36.0); MEAN CORPUSCULAR VOLUME 97 fL (80-96); MONOCYTES # (AUTO) 0.7 /CMM (0.1-1.30); MONOCYTES % (AUTO) 7.8 % (2.0-12.0); NEUTROPHILS # (AUTO) 5.6 /CMM (1.8-8.9); NEUTROPHILS % (AUTO) 66.5 % (43.0-81.0); PLATELET COUNT (AUTO) 180 /CMM (150-450); RED BLOOD CELL COUNT(AUTO) 3.04 MIL/uL (4.5-6.0); WHITE BLOOD COUNT (AUTO) 8.4 K/uL (4.3-11.0)
--- NOTE | 2019-03-01 07:35 | NUR ---
ACID PATROLLER OPENING NOTES RECEIVED PATIENT IN BED, ASLEEP. AROUSABLE TO VERBAL AND TACTILE STIMULI. HOB ELEVATED. NO S/S OF RESPIRATORY DISTRESS, SALAZAR MECHANICAL VENTILATION WELL ORDERED. GT INTACT AND PATENT, PLACEMENT CHECKED VIA AUSCULTATION, NO RESIDUAL NOTED. BED IN LOWEST POSITION, LOCKED. BED ALARM ON. BED SIDERAILS UP X2. FREQUENT VISUAL CHECK DONE.
[2019-03-01 07:41] LABS: CALCIUM, SERUM 10.6 mg/dL (8.5-10.1); MAGNESIUM 3.1 mg/dL (1.8-2.4); PHOSPHORUS 3.3 mg/dL (2.5-4.9)
[2019-03-01 07:52] LABS: CREATININE 7.8 mg/dL (0.6-1.3)
[2019-03-01 08:00] VITALS: BP 123/80
[2019-03-01] MEDS: PANTOPRAZOLE 40 MG TABLET.DR PO SCH (08:30)
[2019-03-01] MEDS: DOCUSATE SODIUM LIQ 100 MG/10 ML UDC GT SCH ×2 (09:00→21:00)
[2019-03-01] MEDS: MIDODRINE HCL (5MG) 5 MG TABLET GT SCH ×3 (09:00→17:00)
[2019-03-01] MEDS: SEVELAMER CARBONATE 0.8 GM POWD.PACK GT SCH ×3 (09:07→17:04)
[2019-03-01] MEDS: PROSOURCE / PROSTAT (PYXIS) 30 ML UDC GT SCH (09:08)
[2019-03-01] MEDS: FOLIC ACID 1 MG TABLET GT SCH (09:09)
[2019-03-01] MEDS: FERROUS SULFATE UDC 300 MG/5 ML UDC GT SCH (09:09)
[2019-03-01] MEDS: LEVETIRACETAM SOL (5 ML) 100 MG/ML UDC GT SCH ×2 (09:09→21:00)
[2019-03-01] MEDS: LACTOBACILLUS RHAMNOSUS GG 1 EACH CAP.SPRINK GT SCH ×2 (09:09→20:59)
[2019-03-01] MEDS: clonazePAM 0.5 MG TABLET GT SCH ×2 (09:10→20:59)
[2019-03-01] MEDS: AMIODARONE HCL 200 MG TABLET GT SCH (09:10)
[2019-03-01] MEDS: VIT B CMPLX 3/FA/VIT C/BIOTIN 1 TAB TABLET PO SCH (09:10)
--- NOTE | 2019-03-01 12:38 | NUR ---
HEALTH CARE SPECIALIST NOTES HELD INSULIN BS 129MG/DL
[2019-03-01 16:00] VITALS: BP 115/75
[2019-03-01] MEDS: NEPRO 1,000 ML BOTTLE GT PRN (17:05)
--- NOTE | 2019-03-01 17:39 | NUR ---
PATIENT RECEIVED TRACHED ON MECHANICAL VENT. ALARMS VERIFIED AND AUDIBLE. SUCTIONED AND LAVAGED THICK MOSER SECRETIONS. AMBU BAG AT [facility].
--- NOTE | 2019-03-01 18:59 | NUR ---
AVIATION MEDICINE SPECIALIST CLOSING NOTES RESTING COMFORTABLY IN BED. OPENS EYES WHEN CALLED BY NAME. RESPONSIVE TO VERBAL AND TACTILE STIMULI. HOB ELEVATED. NO S/S OF RESPIRATORY DISTRESS. ON AC 12 TV 500 FI02 40% WITH PORTEX #8 INTACT. GT INTACT AND PATENT SALAZAR NEPRO @ 45ML/HR. NO RESIDUAL OBSERVED. BED IN LOWEST POSITION, LOCKED. BED ALARM ON. BED SIDERAILS UP X2. FREQUENT VISUAL CHECK DONE. IN NO APPARENT DISTRESS.
[2019-03-01 19:00] VITALS: BP 118/78
--- NOTE | 2019-03-01 19:49 | NUR ---
Recieved in bed Resp. at the bed side suctioning patient. 02 sats 97% on the vent. tach area clean and dry dressing. Noted bilateral arms edematous elevated on pillows. bed alarm on
[2019-03-01 20:00] VITALS: BP 118/78
[2019-03-01] MEDS: SENNOSIDES 8.6 MG TABLET GT SCH (21:04)
--- NOTE | 2019-03-01 21:59 | NUR ---
VARITYPE OPERATOR NOTES RECEIVED PATIENT FROM FABIANA KENNEDY AT [id number].
--- NOTE | 2019-03-01 22:00 | NUR ---
NEON MOLDER NOTES RECEIVED PATIENT FROM FABIANA KENNEDY. PATIENT IN BED, NONVERBAL, RESPONSIVE TO TACTILE STIMULI AND OPENS EYES. DISPLAYS NO SIGNS OF ACUTE DISTRESS, NO ACUTE PAIN. PATIENT ON VENT PORTOX #8 TV 500, AC 12, FIO2 10%, TV 500ML, TOLERATING VENT SETTINGS. ON TELE MONITOR SR 1ST DEGREE AV BLOCK IN 90'S. GTUBE FEEDING NEPHRO 45M/HR. PERMACATH ON L THIGH, DRESSING CLEAN, DRY AND INTACT. IV ON RAC #20 SL, CLEAN DRY AND INTACT. SHOWS NO SIGNS OF INFILTRATION, NO REDNESS. SAFETY PRECAUTION IN PLACE. BED IN LOWEST POSITION, LOCKED, AND CALL LIGHT KEPT WITHIN REACH. WILL CONTINUE TO MONITOR.
[2019-03-02] VITALS: BP 137/90
[2019-03-02 04:00] VITALS: BP 120/83
[2019-03-02] MEDS: PIPERACILLIN /TAZOBACTAM 2.25 G in IV D5W 50 ML IV SCH ×3 (05:06→21:42)
--- NOTE | 2019-03-02 06:42 | NUR ---
FIRER POWERHOUSE NOTES PATIENT IN BED, NONVERBAL, RESPONSIVE TO TACTILE STIMULI AND OPENS EYES. DISPLAYS NO SIGNS OF ACUTE DISTRESS, NO ACUTE PAIN. PATIENT ON VENT PORTOX #8, TOLERATING VENT SETTINGS. ON TELE MONITOR SR 1ST DEGREE AV BLOCK 76HR. GTUBE FEEDING NEPHRO 45M/HR. PERMACATH ON L THIGH, DRESSING CLEAN, DRY AND INTACT. IV ON RAC #20 SL, CLEAN DRY AND INTACT. SHOWS NO SIGNS OF INFILTRATION, NO REDNESS. ALL MEDICATION DUE GIVEN. ALL PATIENTS NEEDS MET. SAFETY PRECAUTION IN PLACE. BED IN LOWEST POSITION, LOCKED, AND CALL LIGHT KEPT WITHIN REACH. WILL ENDORSE TO ONCOMING NURSE.
[2019-03-02] MEDS: BLOOD SUGAR DIAGNOSTIC 1 EACH STRIP IN SCH ×4 (07:02→21:20)
--- NOTE | 2019-03-02 07:30 | NUR ---
THREAD MARKER OPENING NOTES RECEIVED PT IN BED, ASLEEP AND COMFORTABLE. PT NONVERBAL. PT TOLERATING CURRENT VENT SETTINGS, WITH NO ACUTE RESPIRATORY DISTRESS NOTED. PT NOT EXHIBITING ANY PAIN OR DISCOMFORT AT THIS TIME. ON TELEMONITORING WITH SR 77. PIV TO RAC G20, FLUSHED WITH NS, INTACT AND OPERATIONAL. LEFT THIGH PERMACATH NOTED FOR HD ACCESS. PT KEPT COMFORTABLE. CALL LIGHT KEPT WITHIN REACH. PT'S BED IN LOWEST, LOCKED POSITION WITH SR X3. WILL CONTINUE PLAN OF CARE.
[2019-03-02 08:00] VITALS: BP 150/90
[2019-03-02 08:20] LABS: BASOPHILS % (AUTO) 0.2 % (0.0-2.0); EOSINOPHILS % (AUTO) 2.3 % (0.0-6.0); HEMATOCRIT 29 % (39-51); HEMOGLOBIN 9.9 g/dL (13.5-17.5); LYMPHOCYTES # (AUTO) 1.1 /CMM (0.8-4.8); LYMPHOCYTES % (AUTO) 13.9 % (20.0-44.0); MEAN CORPUSCULAR HGB CONC 35 g/dl (31.0-36.0); MEAN CORPUSCULAR VOLUME 96 fL (80-96); MONOCYTES # (AUTO) 0.5 /CMM (0.1-1.30); MONOCYTES % (AUTO) 6.6 % (2.0-12.0); NEUTROPHILS # (AUTO) 6.4 /CMM (1.8-8.9); PLATELET COUNT (AUTO) 219 /CMM (150-450); WHITE BLOOD COUNT (AUTO) 8.3 K/uL (4.3-11.0)
[2019-03-02] MEDS: FOLIC ACID 1 MG TABLET GT SCH (08:22)
[2019-03-02] MEDS: LEVETIRACETAM SOL (5 ML) 100 MG/ML UDC GT SCH ×2 (08:22→20:09)
[2019-03-02] MEDS: VIT B CMPLX 3/FA/VIT C/BIOTIN 1 TAB TABLET PO SCH (08:22)
[2019-03-02] MEDS: DOCUSATE SODIUM LIQ 100 MG/10 ML UDC GT SCH ×2 (08:22→20:09)
[2019-03-02] MEDS: SEVELAMER CARBONATE 0.8 GM POWD.PACK GT SCH ×3 (08:22→16:41)
[2019-03-02] MEDS: FERROUS SULFATE UDC 300 MG/5 ML UDC GT SCH (08:22)
[2019-03-02] MEDS: PANTOPRAZOLE 40 MG TABLET.DR PO SCH (08:22)
[2019-03-02] MEDS: LACTOBACILLUS RHAMNOSUS GG 1 EACH CAP.SPRINK GT SCH ×2 (08:23→20:09)
[2019-03-02] MEDS: MIDODRINE HCL (5MG) 5 MG TABLET GT SCH ×3 (08:23→16:40)
[2019-03-02] MEDS: clonazePAM 0.5 MG TABLET GT SCH ×2 (08:23→20:09)
[2019-03-02] MEDS: AMIODARONE HCL 200 MG TABLET GT SCH (08:24)
[2019-03-02 08:25] LABS: CALCIUM, SERUM 9.7 mg/dL (8.5-10.1); MAGNESIUM 3.2 mg/dL (1.8-2.4); PHOSPHORUS 3.4 mg/dL (2.5-4.9); POTASSIUM 3.6 mmol/L (3.5-5.1)
[2019-03-02] MEDS: PROSOURCE / PROSTAT (PYXIS) 30 ML UDC GT SCH (08:25)
[2019-03-02 08:42] LABS: CREATININE 9.4 mg/dL (0.6-1.3)
--- NOTE | 2019-03-02 09:04 | NUR ---
ORE SAMPLER NOTES RECEIVED CALL FROM LAB REGARDING CRITICAL RESULT OF BUN AND CREA. NOTIFIED HOSPITALIST/SHAGGER/DT, NO NEW ORDERS AT THIS TIME. PT IS SCHEDULED FOR HD TODAY. WILL CONTINUE TO MONITOR PT AND PLAN OF CARE.
[2019-03-02] MEDS: INSULIN REGULAR, HUMAN 100 UNIT/ML 3 ML VIAL SQ PRN (12:31)
--- NOTE | 2019-03-02 13:00 | NUR ---
ACCOUNT MANAGER TRAINEE NOTES RN MADE AWARE CT TECHNICIAN/ALYSSA RAMOS/ID OF HOSPITALIST/DT'S PLAN OF DISCHARGING THE PT TESHA AND WANTS TO KNOW UNTIL WHEN ARE THE ANTIBIOTICS GOING TO BE. [ER CT TECHNICIAN/JH WILL WRITE A NOTE ON HOW LONG SO HOSPITALIST WILL SEE.
--- NOTE | 2019-03-02 13:30 | NUR ---
SITE SUPERVISOR NOTES SPOKE TO PHARMACIST/CLAUDIA. TO GIVE VANCO 500MG AFTER HD TODAY. DIALYSIS NURSE/FERN MADE AWARE WELL.
--- NOTE | 2019-03-02 13:40 | NUR ---
CLINICAL STAFF EDUCATOR NOTES 13OO SCHEDULED MEDS WAS NOT GIVEN PT JUST STARTED HEMODIALYSIS. SCHEDULED IV ZOSYN AT 1300 WILL BE ADMINISTERED AFTER HEMODIALYSIS. AWARE.
[2019-03-02 16:13] VITALS: BP 140/90
--- NOTE | 2019-03-02 16:47 | NUR ---
RT NOTE: PATIENT RECEIVED TRACHED ON MECHANICAL VENT. ALARMS VERIFIED AND AUDIBLE. SUCTIONED AND LAVAGED THICK MOSER SECRETIONS. AMBU BAG AT [facility].
[2019-03-02] MEDS: VANCOMYCIN POST DIALYSIS 500MG IV PRN ×2 (17:05)
[2019-03-02] MEDS: NEPRO 1,000 ML BOTTLE GT PRN (17:25)
--- NOTE | 2019-03-02 19:02 | NUR ---
INLETTER CLOSING NOTES PT IN BED, AWAKE AND COMFORTABLE. PT NONVERBAL. PT TOLERATING CURRENT VENT SETTINGS, WITH NO ACUTE RESPIRATORY DISTRESS NOTED. PT NOT EXHIBITING ANY PAIN OR DISCOMFORT AT THIS TIME. ON TELEMONITORING WITH SR 90. PIV TO RAC G20, FLUSHED WITH NS, INTACT AND OPERATIONAL. LEFT THIGH PERMACATH NOTED FOR HD ACCESS; HD ON GOING AT THIS TIME, VANCO IV HANDED TO DIALYSIS NURSE FERN TO INFUSE AT THE END OF HD. PT KEPT COMFORTABLE. ALL NEEDS AND CARE ATTENDED. CALL LIGHT KEPT WITHIN REACH. PT'S BED IN LOWEST, LOCKED POSITION WITH SR X3. WILL ENDORSE TO INCOMING COLLEGE SPORTS COACH FOR CLARY.
--- NOTE | 2019-03-02 19:39 | NUR ---
TELE/RN OPENING NOTES RECEIVED PATIENT IN BED, HOB ELEVATED ON MECHANICAL VENT WITH PRESCRIBED SETTING OG TV [id number], AC12 ON PORTEX 8, PATIENT NON VERBAL, DYSPHAGIA, ON GTUBE WITH NEPHRO AT 45 ML HR, BED BOUNNDM WITH SINUS DORA TO SR, HD WAS DONE WITH 2L OUTPUT. REQUIRE TURN AND REPOSITION, ON RIGHT AC GAUGE 20M LEFT THIGH PERMA CATH, WILL MONITOR, REQUIRE WOUND CARE ON SACRAL, BREATHING TREATMENT, BED LOCKED,
[2019-03-02 20:00] VITALS: BP 116/80
[2019-03-02] MEDS: SENNOSIDES 8.6 MG TABLET GT SCH (21:18)
[2019-03-03] VITALS: BP 118/74
[2019-03-03 04:00] VITALS: BP 135/86
[2019-03-03] MEDS: PIPERACILLIN /TAZOBACTAM 2.25 G in IV D5W 50 ML IV SCH ×2 (05:04→13:10)
--- NOTE | 2019-03-03 05:38 | NUR ---
PATIENT RECEIVED ON TRACH TO VENT WITH SETTINGS OF AC 12, 500 VT, 40%, +0. SUCTIONED FOR MINIMAL, THIN, FROTHY-WHITE SECRETIONS. NO DISTRESS/SOB NOTED. AMBU BAG AT BEDSIDE. VENT AND PULSE OXIMETER ALARMS AUDIBLE AND VISIBLE. VENT PLUGGED INTO RED OUTLET. INNER CANNULA CHANGED. TRACH CARE DONE. Addendum: 03/03/19 at 0540 by MELONY CORRAL RT Amended: Links added.
[2019-03-03] MEDS: BLOOD SUGAR DIAGNOSTIC 1 EACH STRIP IN SCH ×3 (06:02→17:28)
[2019-03-03] MEDS: INSULIN REGULAR, HUMAN 100 UNIT/ML 3 ML VIAL SQ PRN ×2 (06:22→17:28)
--- NOTE | 2019-03-03 07:05 | NUR ---
325-1 TELE READING SR. PATIENT ON MECHANICAL VENT, HOB ELEVATED, ABLE TO SLEEP DURING THE NIGHT, ON SCHEDULED BREATHING TX AND NEEDED SUCTION. GTUBE PATENT WITH ZERO RESIDUALS. TURNED AND REPOSITONED EVERTY 2 HOURS. WILL MONITOR.
[2019-03-03 07:16] LABS: CALCIUM, SERUM 10.5 mg/dL (8.5-10.1); CREATININE 7.2 mg/dL (0.6-1.3); POTASSIUM 4.2 mmol/L (3.5-5.1)
--- NOTE | 2019-03-03 07:35 | NUR ---
COMMERCIAL DRONE PILOT OPENING NOTES RECEIVED PT AWAKE IN BED IN NO ACUTE SIGNS OF DISTRESS NOTED. HOB ELEVATED. PT IS NON-VERBAL, OPEN HIS EYES AND RESPONSIVE TO TACTILE STIMULI. NO FACIAL GRIMACING OR MOANING NOTED AT THIS TIME. ON [facility] VENTILATOR AT PRESCRIBED PARAMETERS, TOLERATING SETTINGS WELL WITH NO SOB NOTED. ON TELE-MONITORING WITH CURRENT READING OF SR WITH HR ON 80'S. IV ACCESS ON RAC G#20 INTACT AND PATENT. G-TUBE IN PLACE AND PATENT WITH GTF OF NEPRO @ 45ML/HR IN PROGRESS, TOLERATING WELL. ASPIRATION PRECAUTIONS MAINTAINED. LEFT HD FEMORAL CATH IN PLACE WITH DRESSING C/D/I. SAFETY MEASURES IN PLACE: BED IN LOW LOCKED POSITION WITH SR UP X3. CALL LIGHT WITHIN EASY REACH OF PT. WILL CONTINUE TO MONITOR PT ACCORDINGLY
--- NOTE | 2019-03-03 07:53 | NUR ---
RT Pt received trached on mechanical ventilation with noted settings. Pt is awake but does not follow commands. Vent is plugged into red outlet. No SOB or respiratory distress noted. Addendum: 03/03/19 at 0937 by DEN HINOJOSA RT Amended: Links added.
[2019-03-03 08:00] VITALS: BP 128/80
[2019-03-03 08:16] LABS: BASOPHILS % (AUTO) 0.3 % (0.0-2.0); EOSINOPHILS % (AUTO) 1.7 % (0.0-6.0); HEMATOCRIT 29 % (39-51); HEMOGLOBIN 9.7 g/dL (13.5-17.5); LYMPHOCYTES # (AUTO) 1.1 /CMM (0.8-4.8); LYMPHOCYTES % (AUTO) 15.5 % (20.0-44.0); MEAN CORPUSCULAR HGB CONC 33 g/dl (31.0-36.0); MEAN CORPUSCULAR VOLUME 96 fL (80-96); MONOCYTES # (AUTO) 0.5 /CMM (0.1-1.30); MONOCYTES % (AUTO) 6.9 % (2.0-12.0); NEUTROPHILS # (AUTO) 5.4 /CMM (1.8-8.9); NEUTROPHILS % (AUTO) 75.6 % (43.0-81.0); PLATELET COUNT (AUTO) 201 /CMM (150-450); RED BLOOD CELL COUNT(AUTO) 3.04 MIL/uL (4.5-6.0); WHITE BLOOD COUNT (AUTO) 7.2 K/uL (4.3-11.0)
[2019-03-03] MEDS: MIDODRINE HCL (5MG) 5 MG TABLET GT SCH ×4 (08:37→16:53)
[2019-03-03] MEDS: LACTOBACILLUS RHAMNOSUS GG 1 EACH CAP.SPRINK GT SCH (08:39)
[2019-03-03] MEDS: PANTOPRAZOLE 40 MG TABLET.DR PO SCH (08:39)
[2019-03-03] MEDS: clonazePAM 0.5 MG TABLET GT SCH (08:39)
[2019-03-03] MEDS: FERROUS SULFATE UDC 300 MG/5 ML UDC GT SCH (08:39)
[2019-03-03] MEDS: LEVETIRACETAM SOL (5 ML) 100 MG/ML UDC GT SCH (08:39)
[2019-03-03] MEDS: VIT B CMPLX 3/FA/VIT C/BIOTIN 1 TAB TABLET PO SCH (08:39)
[2019-03-03] MEDS: DOCUSATE SODIUM LIQ 100 MG/10 ML UDC GT SCH (08:39)
[2019-03-03] MEDS: FOLIC ACID 1 MG TABLET GT SCH (08:39)
[2019-03-03] MEDS: AMIODARONE HCL 200 MG TABLET GT SCH (08:39)
[2019-03-03] MEDS: PROSOURCE / PROSTAT (PYXIS) 30 ML UDC GT SCH (08:40)
[2019-03-03] MEDS: SEVELAMER CARBONATE 0.8 GM POWD.PACK GT SCH ×3 (08:40→16:53)
[2019-03-03 12:00] VITALS: BP 137/87
--- NOTE | 2019-03-03 14:15 | NUR ---
RN NOTES RECEIVED CALL FROM STAFF OF [facility] AND SAID THAT THEY WILL COME TO PICK-UP PT GOING TO [facility] AT 1800.
--- NOTE | 2019-03-03 14:44 | NUR ---
RN NOTES PT FOR DISCHARGED TO [facility]. CALLED [facility] # [phone] AND REPORT GIVEN TO TASIA LOPEZ
[2019-03-03 16:00] VITALS: BP 132/77
--- NOTE | 2019-03-03 16:25 | NUR ---
RN NOTES TRIED TO CALL PT'S SON MYRIAM CROWDER @ [facility] # [phone] X3 BUT PHONE IS NOT ACCEPTING CALLS. CALLED DAUGHTER RC AT [facility] # [phone] AND INFORMED THAT PT WILL BE DISCHARGED BACK TO [facility], PICK-UP TIME IN 1800.
[2019-03-03 16:53] VITALS: BP 132/77
[2019-03-03] MEDS: NEPRO 1,000 ML BOTTLE GT PRN (17:55)
--- NOTE | 2019-03-03 18:57 | NUR ---
TIGER MACHINE OPERATOR CLOSING NOTES PT IN BED LYING AT MODERATE HIGH BACKREST POSITION. PT IS NON-VERBAL, OPEN HIS EYES AND RESPONSIVE TO TACTILE STIMULI. ON [facility] VENTILATOR AT PRESCRIBED PARAMETERS, TOLERATING SETTINGS WELL WITH NO SOB NOTED THROUGHOUT THE DAY. ON TELE-MONITORING WITH CURRENT READING OF SR WITH IST DEGREE HEART BLOCK, HR ON 70'S AT THIS TIME. IV ACCESS ON RAC G#20 INTACT PATENT AND FLUSHES WELL. G-TUBE IN PLACE AND PATENT WITH GTF OF NEPRO @ 45ML/HR IN PROGRESS, TOLERATING WELL. ASPIRATION PRECAUTIONS MAINTAINED. LEFT HD FEMORAL CATH IN PLACE WITH DRESSING C/D/I. PT TURNED AND REPOSITIONED Q 2HRS AND PRN. KEPT CLEAN, DRY AND COMFORTABLE. SAFETY MEASURES IN PLACE: BED IN LOW LOCKED POSITION WITH SR UP X3. CALL LIGHT WITHIN EASY REACH OF PT. PT FOR DISCHARGE TO [facility] TONIGHT. WILL ENDORSE TO SPOOLER NURSE.
--- NOTE | 2019-03-03 20:00 | NUR ---
DISPATCHER ELECTRIC POWER NOTES PATIENT PICKED UP BY [facility], ACCOMPANIED BY 3 EMT'S AND RT. PACKET GIVEN TO THE EMT, VITAL SIGNS TAKEN AND WNL. TRACH INTACT AND PATENT; GTUBE INTACT, FLUSHED WITH 30CC OF WATER. REPORT GIVEN TO JESSICA KENNEDY OF [facility]. NO BELONGINGS NOTED. BP 135/84 HR94 RR12 Temp 97.9 SPO2 96%.
== END 2019-03-03 19:55 | DRG 720 ==
LOC: ER 10:59 → TELE 14:46
PROVIDERS: ADMIT Nurse Practitioner Acute Care; ATTEND Nurse Practitioner Acute Care
PROC: 5A1955Z Respiratory Ventilation, Greater than 96 Consecutive Hours (ICD-10-PCS; principal; 2019-02-26)
PROC: 5A1D70Z Performance of Urinary Filtration, Intermittent, Less than 6 Hours Per Day (ICD-10-PCS; 2019-02-28)
DX: A41.9 Sepsis, unspecified organism (principal); I13.2 Hypertensive heart and chronic kidney disease with heart failure and with stage 5 chronic kidney disease, or end stage renal disease; G93.1 Anoxic brain damage, not elsewhere classified; Z99.11 Dependence on respirator [ventilator] status; J18.9 Pneumonia, unspecified organism; J96.11 Chronic respiratory failure with hypoxia; L89.150 Pressure ulcer of sacral region, unstageable; R40.3 Persistent vegetative state; N18.6 End stage renal disease; D68.59 Other primary thrombophilia; Z93.0 Tracheostomy status; E11.22 Type 2 diabetes mellitus with diabetic chronic kidney disease; G40.909 Epilepsy, unspecified, not intractable, without status epilepticus; Z86.718 Personal history of other venous thrombosis and embolism; Z99.2 Dependence on renal dialysis; Z93.1 Gastrostomy status; Z87.820 Personal history of traumatic brain injury; N39.0 Urinary tract infection, site not specified; K21.9 Gastro-esophageal reflux disease without esophagitis; I48.0 Paroxysmal atrial fibrillation; D63.1 Anemia in chronic kidney disease; Z86.74 Personal history of sudden cardiac arrest; M24.542 Contracture, left hand; M24.541 Contracture, right hand; I95.9 Hypotension, unspecified; I50.9 Heart failure, unspecified; I25.10 Atherosclerotic heart disease of native coronary artery without angina pectoris; Z86.14 Personal history of Methicillin resistant Staphylococcus aureus infection; Z79.4 Long term (current) use of insulin
CPT/HCPCS: 31720; 36415; 71045-TC; 80048-TC; 80053-TC; 80076-TC; 80202-TC; 82533; 82962-TC; 83605-TC; 83735-TC; 84100-TC; 85025-TC; 85730-TC; 87040-TC; 87081-TC; 94002-TC; 94003-TC; 94760-TC; 94762-TC; 94799-TC; 99082-TC; A4623; A6403; G0378; J1815; J1953; J2185; J2543; J3370; J7030; J7040; J7050; J7060

== ENCOUNTER 2019-04-15 15:25 | Inpatient (IN) | payer MEDICAID ==
[~2019-04-15] VITALS: Ht 167.6 cm; Wt 72.1 kg
[~2019-04-15 15:25] MED LIST changes: -SENN-168 GT; +SENN-261 GT
--- NOTE | 2019-04-15 15:57 | NUR ---
[facility] From Renal Dialysis (usual stay at [facility]) Tachy cardia/low bp, PT TO BED 5, PT ON MONITOR, NAD NOTED, PENDING MD SWANSON
[2019-04-15] MEDS ORDERED: ZINC1CAP2 GT (16:41)
[2019-04-15 16:50] LABS: BASOPHILS # (AUTO) 0.1 /CMM (0.0-0.2); BASOPHILS % (AUTO) 1.9 % (0.0-2.0); EOSINOPHILS % (AUTO) 2.2 % (0.0-6.0); HEMATOCRIT 33 % (39-51); LYMPHOCYTES # (AUTO) 0.8 /CMM (0.8-4.8); LYMPHOCYTES % (AUTO) 9.6 % (20.0-44.0); MEAN CORPUSCULAR HGB CONC 33 g/dl (31.0-36.0); MEAN CORPUSCULAR VOLUME 97 fL (80-96); MONOCYTES # (AUTO) 0.3 /CMM (0.1-1.30); MONOCYTES % (AUTO) 3.6 % (2.0-12.0); NEUTROPHILS # (AUTO) 6.5 /CMM (1.8-8.9); NEUTROPHILS % (AUTO) 82.7 % (43.0-81.0); PLATELET COUNT (AUTO) 210 /CMM (150-450); RED BLOOD CELL COUNT(AUTO) 3.45 MIL/uL (4.5-6.0); WHITE BLOOD COUNT (AUTO) 7.9 K/uL (4.3-11.0)
--- NOTE | 2019-04-15 16:55 | NUR ---
unable to obtain urine sample through straight cath.
[2019-04-15 16:57] LABS: ABG OXYGEN SATURATION 98.4 % (92.0-98.5); ABG PCO2 29.3 mmHg (35.0-45.0); ABG PH 7.433 (7.350-7.450); ABG PO2 144.3 mmHg (75.0-100.0); AaDO2 107.2 mmHg; COHb 1.1 % (0.5-1.5); MetHb 0.3 % (0.0-1.5); SITE, ABG Right Radial; VENT MODE, BG AC 12 500 +5 40%
[2019-04-15 16:59] LABS: CALCIUM, SERUM 9.8 mg/dL (8.5-10.1); CARBON DIOXIDE 25 mmol/L (21-32); CHLORIDE 100 mmol/L (98-107); CREATININE 5.2 mg/dL (0.6-1.3); GLUCOSE 114 mg/dL (74-106); POTASSIUM 3.5 mmol/L (3.5-5.1); SODIUM SERUM 138 mmol/L (136-145); UREA NITROGEN, BLOOD 44 mg/dL (7-18)
--- NOTE | 2019-04-15 17:00 | NUR ---
PER DR. LINDSEY, TRY AND OBTAIN URINE SAMPLE, LAMB CATH PLACED, NO OUTPUT, DR LINDESY MADE AWARE, LEAVE LAMB IN TO OBTAIN SAMPLE.
[2019-04-15 17:20] LABS: ALANINE AMINOTRANSFERASE 42 U/L (12-78); ALBUMIN 3.9 g/dL (3.4-5.0); ALKALINE PHOSPHATASE 159 U/L (46-116); ASPARTATE AMINOTRANSFERASE 23 U/L (15-37); BILIRUBIN,DIRECT 0.1 mg/dL (0.0-0.2); BILIRUBIN,TOTAL 0.6 mg/dL (0.2-1.0); TOTAL PROTEIN, SERUM 8.6 g/dL (6.4-8.2)
[2019-04-15] MEDS ORDERED: NEPRO 1,000 ML BOTTLE GT PRN (18:00)
[2019-04-15] MEDS ORDERED: MEROPENEM 500 MG in IV NS 0.9% 50 ML IV ONE (18:00)
--- NOTE | 2019-04-15 18:23 | NUR ---
CALLED SNF, PER MELVA, PT IS ON DIALYSIS AND DOES NOT PRODUCE URINE REGULARLY.
[2019-04-15] MEDS ORDERED: HYDROCODONE/APAP 5/325MG 1 EACH TABLET PO PRN (18:30)
[2019-04-15] MEDS ORDERED: Z GUARD REMEDY 2 OZ OINT TP PRN (18:30)
[2019-04-15] MEDS ORDERED: ACETAMINOPHEN 325 MG TABLET PO PRN (18:30)
[2019-04-15] MEDS ORDERED: ONDANSETRON HCL/PF 4 MG/2 ML VIAL IVP PRN (18:30)
--- NOTE | 2019-04-15 19:49 | NUR ---
AC 12 500 40% 5 PORTEX 8
--- NOTE | 2019-04-15 19:58 | NUR ---
REPORT GIVEN TO MARCIA RENDON FOR CLARY PT WILL BE TRANSPORTED TO 1ST FLOOR
--- NOTE | 2019-04-15 20:15 | NUR ---
PT TRANSPORTED TO [facility]
[2019-04-15 20:30] VITALS: BP 116/87
--- NOTE | 2019-04-15 20:30 | NUR ---
TELE/RN RECEIVED PATIENT OBTUNDED ON VENT WITH PORTEX #8, ON AC 12, TV 500. FIO2 40%, AND PEEP 5. PATIENT ON THE MONITOR SHOWING SR. HAS A HALLIE #20 AND A LT FEMORAL FOR HD. PATIENT IN NO SIGN OF ANY DISTRESS. VENT PLUGGED INTO RED OUTLETS. GTUBE SITE WITH NO SIGN OF OBSTRUCTIONS OR LEAKAGE. WILL CONTINUE TO MONITOR PATIENT
[2019-04-15] MEDS: LACTOBACILLUS RHAMNOSUS GG 1 EACH CAP.SPRINK GT SCH (21:18)
[2019-04-15] MEDS: DOCUSATE SODIUM LIQ 100 MG/10 ML UDC GT SCH (21:18)
[2019-04-15] MEDS: clonazePAM 0.5 MG TABLET GT SCH (21:18)
[2019-04-15] MEDS: LEVETIRACETAM SOL (5 ML) 100 MG/ML UDC GT SCH (21:18)
[2019-04-15] MEDS: IV NS 0.9% 1,000 ML IV PRN (21:37)
--- NOTE | 2019-04-15 22:54 | NUR ---
TELE/RN NOTE PAGED DR DANILO MELGOZA ABOUT CRITICAL TROPONIN LEVER OF 0.986. DR ORDERED ASPIRIN 81MG DAILY. READ BACK PERFORMED. WILL CONTINUE TO MONITOR PATIENT
[2019-04-15] MEDS: ASPIRIN 81 MG TAB.CHEW GT SCH (23:12)
[2019-04-15] MEDS: SENNOSIDES 8.6 MG TABLET GT SCH (23:12)
[2019-04-16] VITALS: BP 123/26
--- NOTE | 2019-04-16 00:35 | NUR ---
RT NOTE Pt rec'd trached on [facility] vent on AC mode. No resp distress or sob noted. Trach is patent and secured. Sx'd for thick large amt of thick pale yellow secretions. Alarms are set and audible. Vent plugged into red outlet. Ambu bag bedside. Will continue to monitor closely. Addendum: 04/16/19 at 0038 by SARAH SMITH RT Amended: Links added.
--- NOTE | 2019-04-16 01:15 | NUR ---
TELE/RN PAIGED DR. MELGOZA ABOUT ELEVATED TROPONIN LEVEL OF 1.383 AFTER GIVING ASPIRIN. ORDERED HEPARIN DRIP PER [facility] PROTOCOL NO BOLUS TO BE GIVEN. VIA TEXT.
[2019-04-16] MEDS ORDERED: HEPARIN INFUSION/D5W 500 ML IV ONE (02:34)
[2019-04-16] MEDS: HEPARIN INFUSION/D5W 500 ML IV PRN ×2 (02:42→23:48)
[2019-04-16 04:00] VITALS: BP 132/78
[2019-04-16] MEDS ORDERED: DEXTROSE 50%-WATER 50 ML DISP.SYRIN IV PRN (06:00)
[2019-04-16] MEDS: INSULIN REGULAR, HUMAN 100 UNIT/ML 3 ML VIAL SQ PRN ×2 (06:26→12:11)
[2019-04-16] MEDS: BLOOD SUGAR DIAGNOSTIC 1 EACH STRIP IN SCH ×3 (06:29→18:23)
[2019-04-16 07:00] LABS: BASOPHILS % (AUTO) 0.5 % (0.0-2.0); EOSINOPHILS % (AUTO) 2.1 % (0.0-6.0); HEMATOCRIT 32 % (39-51); HEMOGLOBIN 10.6 g/dL (13.5-17.5); LYMPHOCYTES # (AUTO) 1.1 /CMM (0.8-4.8); LYMPHOCYTES % (AUTO) 16.7 % (20.0-44.0); MEAN CORPUSCULAR HGB CONC 33 g/dl (31.0-36.0); MEAN CORPUSCULAR VOLUME 97 fL (80-96); MONOCYTES # (AUTO) 0.5 /CMM (0.1-1.30); MONOCYTES % (AUTO) 7.3 % (2.0-12.0); NEUTROPHILS # (AUTO) 4.7 /CMM (1.8-8.9); NEUTROPHILS % (AUTO) 73.4 % (43.0-81.0); PLATELET COUNT (AUTO) 201 /CMM (150-450); RED BLOOD CELL COUNT(AUTO) 3.29 MIL/uL (4.5-6.0); WHITE BLOOD COUNT (AUTO) 6.4 K/uL (4.3-11.0)
--- NOTE | 2019-04-16 07:10 | NUR ---
RN INITIAL NOTE RECEIVED REPORT AT BEDSIDE, PATIENT IN BED, ON VENT SATING WELL AT 100%. OBTUNDED. ON TELE MONITOR, SR. HAS A LEFT FEMORAL HD. HAS GT WITH NEPRO AT 50 ML/HR. GOAL IS 55. HAS A RIGHT UA #20 ON HEPARIN DRIP. WILL RECHECK PTT AT 0900. TROPONIN AT 1.383. BED LOCKED AND IN LOWEST POSITION. WILL CONTINUE TO MONITOR
[2019-04-16 07:31] LABS: THYROID STIMULATING HORMONE 4.105 uIU/mL (0.358-3.74)
[2019-04-16 07:33] LABS: CALCIUM, SERUM 9.3 mg/dL (8.5-10.1); CREATININE 6.6 mg/dL (0.6-1.3); MAGNESIUM 2.6 mg/dL (1.8-2.4); PHOSPHORUS 3.7 mg/dL (2.5-4.9); POTASSIUM 3.6 mmol/L (3.5-5.1)
[2019-04-16 08:00] VITALS: BP 115/81
--- NOTE | 2019-04-16 08:04 | NUR ---
HAZARD MITIGATION OFFICER PATIENT IN BED WITH NO SIGN OF ANY DISTRESS. PATIENT TOLERATING VENT AND GTUBE FEEDING OF NEPRO AT 50CC/ML WITH ;LITTLE RESIDUAL. PATIENT IS ON HEPARING DRIP FOLLOWING [facility] PROTOCOL. ALL SAFETY PRECAUTIONS APPLIED. ENDORSED PATIENT TO MORNING SHIFT NURSE FOR CLARY.
[2019-04-16] MEDS: SEVELAMER CARBONATE 0.8 GM POWD.PACK GT SCH ×3 (08:29→16:08)
[2019-04-16] MEDS: PANTOPRAZOLE 40 MG TABLET.DR PO SCH (08:31)
[2019-04-16] MEDS: clonazePAM 0.5 MG TABLET GT SCH ×2 (08:31→22:20)
[2019-04-16] MEDS: FERROUS SULFATE UDC 300 MG/5 ML UDC GT SCH (08:31)
[2019-04-16] MEDS: ZINC SULFATE 220 MG CAPSULE GT SCH (08:31)
[2019-04-16] MEDS: LEVETIRACETAM SOL (5 ML) 100 MG/ML UDC GT SCH ×2 (08:31→22:19)
[2019-04-16] MEDS: DOCUSATE SODIUM LIQ 100 MG/10 ML UDC GT SCH ×2 (08:31→22:19)
[2019-04-16] MEDS: FOLIC ACID 1 MG TABLET GT SCH (08:31)
[2019-04-16] MEDS: MIDODRINE HCL (5MG) 5 MG TABLET GT SCH ×3 (08:31→16:11)
[2019-04-16] MEDS: ASPIRIN 81 MG TAB.CHEW GT SCH (08:32)
[2019-04-16] MEDS: LACTOBACILLUS RHAMNOSUS GG 1 EACH CAP.SPRINK GT SCH ×2 (08:32→22:19)
[2019-04-16] MEDS: IV NS 0.9% 1,000 ML IV PRN (10:06)
[2019-04-16 10:49] LABS: FERRITIN 1630 ng/mL (8-388); IRON, SERUM 61 ug/dl (50-175)
[2019-04-16 12:00] VITALS: BP 107/37
[2019-04-16 12:50] LABS: TOTAL IRON BINDING CAPACITY 334 ug/dl (250-450)
--- NOTE | 2019-04-16 14:55 | NUR ---
RN NOTE PAGED DR DAVIDSON THROUGH [facility], PATIENT WAS NOTED WITH BLOOD IN HIS PENILE AREA. PATIENT IS ON HEPARIN DRIP AT THIS TIME. NNO FROM , CONTINUE MONITORING PATIENT DIALYSIS DONE 1L OUT
[2019-04-16] MEDS ORDERED: NEPRO 1,000 ML BOTTLE GT PRN (15:00)
--- NOTE | 2019-04-16 15:01 | NUR ---
RN NOTE TALKED TO RD, RECOMMENDED GTF FOR THE PATIENT IS NEPRO AT 45 ML/HR X24HR AND ADDITIONAL PROSTAT DAILY. ORDER CARRIED OUT
[2019-04-16] MEDS: PROSOURCE / PROSTAT (PYXIS) 30 ML UDC GT SCH (15:05)
[2019-04-16 16:00] VITALS: BP 114/81
--- NOTE | 2019-04-16 18:29 | NUR ---
RN NOTE LAB CALLED, PATIENT IS GRAM POSITIVE COCCI IN CLUSTER. MADE AWARE Addendum: 04/16/19 at 1857 by JAMARCUS FLANAGAN RN DR DAVIDSON ORDERED VANCOMYCIN 1G IV PHARMACY TO DOSE. ORDER CARRIED OUT
--- NOTE | 2019-04-16 19:01 | NUR ---
RN CLOSING NOTE PATIENT IN BED, OBTUNDED. ALL NEEDS MET. ALL MEDS GIVEN. REPOSITIONED PER PROTOCOL PATIENT NOT IN DISTRESS. ON HEPARIN DRIP. RECHECK PTT TOMORROW AT 0500. BED LOCKED AND IN LOWEST POSITION. WILL ENDORSE TO NOC SHIFT FOR CLARY
[2019-04-16] MEDS ORDERED: FEE PK DOSING 1 MIN EA MC ONE (19:05)
[2019-04-16 20:00] VITALS: BP 125/89
[2019-04-16] MEDS ORDERED: VANCOMYCIN 1 GM in IV NS 0.9% 250 ML IV ONE (20:00)
--- NOTE | 2019-04-16 20:35 | NUR ---
PT RCVD [facility]ACH PORTEX [facility] WITH NOTED SETTINGS. PT IS OBTUNDED . SUCTION DONE PRN, VENT PLUGGED INTO RED OUTLET, VENT ALARMS ON AND AUDIBLE. TRACH IS PATENT AND SECURED. WEDDING DAY COORDINATOR DONE. NO RESPIRATORY DISTRESS NOTED AT THIS TIME. WILL CONTINUE TO MONITOR THE PT T/O SHIFT.
[2019-04-16] MEDS: SENNOSIDES 8.6 MG TABLET GT SCH (22:20)
[2019-04-17] VITALS: BP 112/78
[2019-04-17] MEDS: IV NS 0.9% 1,000 ML IV PRN (00:09)
[2019-04-17] MEDS: INSULIN REGULAR, HUMAN 100 UNIT/ML 3 ML VIAL SQ PRN ×3 (00:40→07:17)
[2019-04-17] MEDS: BLOOD SUGAR DIAGNOSTIC 1 EACH STRIP IN SCH ×4 (00:46→17:59)
[2019-04-17 04:00] VITALS: BP 102/81
--- NOTE | 2019-04-17 07:10 | NUR ---
RN OPENING NOTES PATIENT IN BED, OBTUNDED. NOT IN ANY FORM OF DISTRESS. VENT DEPENDENT. NO S/S OF PAIN OR DISCOMFORT. IV ACCESS INTACT AND PATENT. ON HEPARIN DRIP, APTT AT 0500 IS 51.7, NO CHANGE IN INFUSION SETTINGS. KEPT PATIENT SAFE AND COMFORTABLE. BED LOCKED AND IN LOWEST POSITION. SIDERAILS UP. HOB ELEVATED. WILL MONIOTR ACCORDINGLY.
[2019-04-17 08:00] VITALS: BP 98/72
[2019-04-17] MEDS ORDERED: VANCOMYCIN 500 MG in IV D5W 100 ML IV PRN (09:00)
[2019-04-17] MEDS: LACTOBACILLUS RHAMNOSUS GG 1 EACH CAP.SPRINK GT SCH (09:07)
[2019-04-17] MEDS: ASPIRIN 81 MG TAB.CHEW GT SCH (09:07)
[2019-04-17] MEDS: clonazePAM 0.5 MG TABLET GT SCH (09:07)
[2019-04-17] MEDS: DOCUSATE SODIUM LIQ 100 MG/10 ML UDC GT SCH (09:07)
[2019-04-17] MEDS: LEVETIRACETAM SOL (5 ML) 100 MG/ML UDC GT SCH (09:07)
[2019-04-17] MEDS: FOLIC ACID 1 MG TABLET GT SCH (09:08)
[2019-04-17] MEDS: SEVELAMER CARBONATE 0.8 GM POWD.PACK GT SCH ×3 (09:08→17:58)
[2019-04-17] MEDS: FERROUS SULFATE UDC 300 MG/5 ML UDC GT SCH (09:08)
[2019-04-17] MEDS: ZINC SULFATE 220 MG CAPSULE GT SCH (09:08)
[2019-04-17] MEDS: PANTOPRAZOLE 40 MG TABLET.DR PO SCH (09:10)
[2019-04-17] MEDS: MIDODRINE HCL (5MG) 5 MG TABLET GT SCH ×3 (09:11→17:58)
[2019-04-17] MEDS: PROSOURCE / PROSTAT (PYXIS) 30 ML UDC GT SCH (09:11)
[2019-04-17] MEDS ORDERED: VANC500F2 IV (11:40)
[2019-04-17] MEDS ORDERED: RXVAN XX (11:40)
[2019-04-17 12:00] VITALS: BP 102/73
[2019-04-17] MEDS ORDERED: ALTEPLASE CATHFLO 2 MG/VIAL XX ONE (12:00)
[2019-04-17 16:00] VITALS: BP 111/76
[2019-04-17 17:58] VITALS: BP 111/76
--- NOTE | 2019-04-17 19:30 | NUR ---
RN CLOSING NOTES PATIENT IN STABLE CONDITION. ALL NEED ATTENDED AND PROVIDED. ALL DUE MEDS GIVEN ORDERED. TURNED AND REPOSITIONED PATIENT EVERY 2HRS NEEDED. WOUND CARE RENDERED. KEPT PATIENT SAFE AND COMFORTABLE. BED IN LOW/LOCKED POSITION, SIDERAILS UP, CALL LIGHT IN REACH. ENDORSED TO NIGHT RN FOR CLARY
--- NOTE | 2019-04-17 19:49 | NUR ---
PT RCVD GADIEL'D ON MECHANICAL VENT WITH CHARTED SETTINGS. SX DONE. PT TRACH IS PATENT AND SECURE. VENT ALARMS APPEAR TO BE FUNCTIONING PROPERLY. VENT PLUGGED INTO RED OUTLET. AMBU BAG AT BEDSIDE. NO SOB NOTED. Addendum: 04/17/19 at 1951 by SHAWN ASIF RT Amended: Links added.
--- NOTE | 2019-04-17 20:41 | NUR ---
TELE-1/FITNESS STUDIES TEACHER REPORT GIVEN TO [facility] FOR TRANSPORT TO [facility]. MALGORZATA KENNEDY GIVEN REPORT. RIGHT ARM IV REMOVED CATH TIP INTACT. SITE BENIGN. PT OFF THE FLOOR WITH TRANSPORT TEAM.
== END 2019-04-17 20:40 | DRG 207 ==
LOC: ER 15:33 → TELE1 19:41 → TELE-TD 20:14 → TELE1 20:16
PROC: 5A1945Z Respiratory Ventilation, 24-96 Consecutive Hours (ICD-10-PCS; principal; 2019-04-15)
PROC: 5A1D70Z Performance of Urinary Filtration, Intermittent, Less than 6 Hours Per Day (ICD-10-PCS; 2019-04-16)
DX: I95.3 Hypotension of hemodialysis (principal); I21.A1 Myocardial infarction type 2; Z99.11 Dependence on respirator [ventilator] status; G93.1 Anoxic brain damage, not elsewhere classified; I13.2 Hypertensive heart and chronic kidney disease with heart failure and with stage 5 chronic kidney disease, or end stage renal disease; J96.11 Chronic respiratory failure with hypoxia; R40.3 Persistent vegetative state; N18.6 End stage renal disease; D68.59 Other primary thrombophilia; Z93.0 Tracheostomy status; E11.22 Type 2 diabetes mellitus with diabetic chronic kidney disease; Z99.2 Dependence on renal dialysis; G40.909 Epilepsy, unspecified, not intractable, without status epilepticus; I48.91 Unspecified atrial fibrillation; N39.0 Urinary tract infection, site not specified; D63.1 Anemia in chronic kidney disease; Q78.9 Osteochondrodysplasia, unspecified; R13.10 Dysphagia, unspecified; Z93.1 Gastrostomy status; I50.32 Chronic diastolic (congestive) heart failure; Z86.74 Personal history of sudden cardiac arrest; M24.542 Contracture, left hand; M24.541 Contracture, right hand; I25.10 Atherosclerotic heart disease of native coronary artery without angina pectoris; I25.2 Old myocardial infarction; K21.9 Gastro-esophageal reflux disease without esophagitis; E87.8 Other disorders of electrolyte and fluid balance, not elsewhere classified
CPT/HCPCS: 31720; 36415; 36600; 71045-TC; 80048-TC; 80061-TC; 80076-TC; 80202-TC; 82728-TC; 82803-TC; 82962-TC; 83540-TC; 83605-TC; 83735-TC; 83880; 84100-TC; 84443-TC; 84484-TC; 85025-TC; 85730-TC; 87040-TC; 87081-TC; 90935-TC; 94002-TC; 94003-TC; 94760-TC; A4216; A4623; A6253; G0378; J1644; J1815; J1953; J2185; J2997; J3370; J7030; J7050; J7060